=== PATIENT | female | born 1950 | race Caucasian/White ===

== ENCOUNTER → 2023-09-05 11:36 | Outpatient (REF) | payer MEDICARE, BC, SELFPAY ==
[2023-09-05 13:17] LABS: Albumin 3.8 g/dl (3.5-5.0); Blood Urea Nitrogen 35 mg/dl (7-17); Calcium 9.9 mg/dl (8.4-10.2); Carbon Dioxide 25 mmol/L (22-30); Chloride 105 mmol/L (98-107); Glucose 74 mg/dl (70-99); Phosphorus 3.8 mg/dl (2.5-4.5); Potassium 3.4 mmol/L (3.5-5.1); Sodium 135 mmol/L (135-145); eGFR 18.78
[2023-09-05 13:23] LABS: Intact PTH 221.2 pg/ml (13.6-85.8)
[2023-09-05 16:54] LABS: Uric Acid 9.6 mg/dl (2.5-6.2)
== END ==
LOC: REG 11:36
PROVIDERS: ATTENDING PHYSICIAN Specialist; FAMILY PHYSICIAN Family Medicine
DX: N18.4 Chronic kidney disease, stage 4 (severe) (principal); I27.0 Primary pulmonary hypertension; D63.1 Anemia in chronic kidney disease
CPT/HCPCS: 36415; 80069; 83970; 84550

== ENCOUNTER 2023-10-16 14:12 | Emergency (ER) | payer MEDICARE, BC, SELFPAY ==
[2023-10-16] VITALS (8 sets, daily range): BP systolic 100–138; BP diastolic 66–99
[2023-10-16 14:43] LABS: % Basophils 0.4 % (0-2); % Eosinophils 2.8 % (0-6); % Immature Granulocytes 0.7 % (0-0.5); % Lymphocytes 20.4 % (20.5-51.1); % Monocytes 11.2 % (1.7-9.3); % Neutrophils 64.5 % (42.2-75.2); Absolute Eosinophils 0.2 10^3/uL (0-0.7); Absolute Immature Granulocytes 0.1 10^3/uL (0-0.05); Absolute Lymphocytes 1.5 10^3/uL (1.2-3.4); Absolute Monocytes 0.8 10^3/uL (0.1-0.6); Absolute Neutrophils 4.7 10^3/uL (1.4-6.5); Hematocrit 34.1 % (37.0-47.0); Mean Corp Hgb Conc. 32.3 g/dL (33.0-37.0); Mean Corpuscular Volume 96.1 fL (81.0-99.0); Nucleated Red Blood Cells % 0 %; Platelet Count 185 10^3/uL (130-400); Red Blood Cell Count 3.55 10^6/uL (4.20-5.40); Red Cell Dist. Width 14.1 % (11.5-14.5); White Blood Cell Count 7.3 10^3/uL (4.8-10.8)
[2023-10-16 14:48] LABS: ALT (SGPT) 21 U/L (0-35); AST (SGOT) 33 U/L (14-36); Albumin 3.5 g/dl (3.5-5.0); Alkaline Phosphatase 51 U/L (38-126); Blood Urea Nitrogen 33 mg/dl (7-17); Calcium 9.5 mg/dl (8.4-10.2); Carbon Dioxide 24 mmol/L (22-30); Chloride 104 mmol/L (98-107); Glucose 113 mg/dl (70-99); Lipase 203 U/L (23-300); Potassium 3.5 mmol/L (3.5-5.1); Sodium 132 mmol/L (135-145); Total Bilirubin 0.6 mg/dl (0.2-1.3); Total Protein 6.2 g/dl (6.3-8.2); eGFR 17.18
--- NOTE | 2023-10-16 16:20 | ED.GENMED ---
History of Present Illness
General
Chief Complaint: Abdominal Pain
Source: patient and records
Time Seen by Provider: 10/16/23 16:01
Travel History
Have you had any contact with someone who has COVID-19?: No
Do you have any symptoms of coronavirus? Fever > 100 degrees, chills, cough, shortness of breath, sore throat, loss of taste or smell, muscle aches, or headache?: No
History of Present Illness
History of Present Illness:
73-year-old female with past medical history of hypertension, hyperlipidemia, previous atrial fibrillation, pulmonary embolism and chronic kidney disease presenting to the emergency department for evaluation of right upper quadrant abdominal pain
that has been waxing and waning since Monday, Monday had a fever with Tmax of 100.6 and reports low-grade fever since then (99 4-99 5 but nothing higher than this) persistent nausea and decreased p.o. intake. Patient states that this feels
similar to when she was diagnosed with cholangitis and septicemia about 3 months ago where she underwent an MRCP and ERCP for stone retrieval. Patient contacted her GI team, Dr. Llanes, and the office staff recommended patient come to the ER for
further evaluation. Patient states that she did not take anything today but had attempted some Zofran, Bentyl and hydrocodone at home since Monday but with no relief. Presently patient states pain is still within the right upper quadrant and
radiates towards the epigastrium,, aching, worse with palpation and movement.
Past History
Past History
ED Past Medical History: CAD, HTN, Hypercholesterolemia, Hypothyroidism, Other (Pancreatitis, irritable bowel), Other (Lyme's disease 3 years ago, pulmonary hypertension) and Other (Syncopal episodes, rheumatoid arthritis, osteoporosis, and ovarian
cysts)
ED Past Surgical History: Cardiac, Cholecystectomy, Gynecological and Orthopedic
Social History
Tobacco: Non-smoker
Alcohol: None
Drug: None
Personal:
Living: with family
Family History
Family History: Other (Not relevant)
Review of Systems
Review of Systems
All Other Systems: ROS reviewed and negative except as documented in HPI and ROS
Phy Exam
Physical Exam
Physical Exam:
GENERAL: Alert , in no apparent distress at rest but uncomfortable with palpation of the abdomen
EYE: clear conjunctiva b/l
HEAD: NCAT
ENT: o/p clr, mmm.
CARDIAC: Regular rate and rhythm .
LUNGS: Clear breath sounds bilaterally, no acute respiratory distress, no wheezes/rales/rhonchi
ABDOMEN: Soft, right upper quadrant tenderness with grimacing but a negative Noguera sign, no r/g, no cvat, no tenderness at McBurney's point
NEUROLOGICAL: Alert and oriented
SKIN: Warm and dry, skin intact.
MUSCULOSKELETAL: No edema, well perfused.
PSYCH: Normal and appropriate interaction.
Scores
Heart Failure Risk
Heart Failure Risk Score: Not Applicable
Heart Score for Chest Pain Patients
STEMI patient?: Not applicable
Withdrawal Assessment of Alcohol
Withdrawal Assessment Completed?: Not applicable
Course
Orders/Labs/Results
Orders:
Orders
10/16/23 14:21
Complete Blood Count/With Diff Urgent
Comprehensive Metabolic Panel Urgent
Lipase Urgent
10/16/23 16:18
CT Abd/pel (oral only)-[facility] Only Urgent
Comment:
Reason For Exam: RUQ abd pain, hx of cholangitis, fever
Iohexol [Omnipaque] See Protocol PO NOW STA
US Abdomen Complete/Upper Urgent
Comment:
Reason For Exam: fever, hx cholangitis, RUQ pain, previous ezequiel
10/16/23 16:19
0.9% Sodium Chloride 500 ml [Nss] 500 ml IV BOLUS
Morphine Sulfate 4 mg IV NOW STA
Ondansetron Injectable [Zofran] 4 mg IV NOW STA
10/16/23 21:20
Morphine Sulfate 2 mg IV NOW STA
Abnormal Lab Results
10/16/23
14:21
RBC 3.55 L 10^6/uL
(4.20-5.40)
Hgb 11.0 L g/dL
(12.0-16.0)
Hct 34.1 L %
(37.0-47.0)
MCHC 32.3 L g/dL
(33.0-37.0)
Abs Immat Gran (auto) 0.1 H 10^3/uL
(0-0.05)
Absolute Monos (auto) 0.8 H 10^3/uL
(0.1-0.6)
Immature Gran % 0.7 H %
(0-0.5)
Lymphocytes % 20.4 L %
(20.5-51.1)
Monocytes % 11.2 H %
(1.7-9.3)
Sodium 132 L mmol/L
(135-145)
BUN 33 H mg/dl
(7-17)
Creatinine 2.8 H mg/dL
(0.6-1.0)
Glucose 113 H mg/dl
(70-99)
Total Protein 6.2 L g/dl
(6.3-8.2)
10/16/23 14:21
10/16/23 14:21
Vital Signs
Initial and Last Documented VS:
Initial Vital Signs
Temp Pulse Resp BP Pulse Ox
98.9 F 78 18 138/66 93
10/16/23 14:15 10/16/23 14:15 10/16/23 14:15 10/16/23 14:15 10/16/23 14:15
Last Documented Vital Signs
Temp Pulse Resp BP Pulse Ox
98.9 F 76 17 118/70 94
10/16/23 14:15 10/16/23 21:00 10/16/23 21:00 10/16/23 21:00 10/16/23 20:45
MDM/Problems Addressed
Differential Diagnosis Includes:
Recurring choledocholithiasis, no concern for cholecystitis Previous cholecystectomy, GERD/gastritis/duodenitis, possible atypical appendicitis presentation, infectious etiology such as pneumonia considered given the upper abdominal pain however
less likely given lack of symptoms of this.
MDM/Problems Addressed:
73-year-old female present emergency department for evaluation of right upper quadrant abdominal pain since Monday, had a fever on Monday but no fever since. Pain is pretty clearly reproducible within the right upper quadrant as well as mildly
within the epigastrium. Lab work had been initiated from triage and there is no leukocytosis, LFTs are normal and patient has known chronic kidney disease. Will check an ultrasound as well as CT of the abdomen and pelvis. Reassessment following.
*Radiology
Radiology exam reviewed: radiology read reviewed
*Pulse Oximetry
Patient hypoxic: no
*Critical Care Note
Total Time (30-74mins, 75-104mins- exclusive of procedures): Not Applicable
Data Reviewed
Review of Other/Old Records Reveals: Labs, Records, Operative Reports and Discharge Summary
Source: patient and records
Patient Management
Escalation/DeEscalation of care consider admission/obs:
Patient's ultrasound shows moderate intrahepatic biliary dilatation with suggestion of diffuse pneumobilia. Common bile duct is 5-1/2 mm without any evidence for stones. CT of the abdomen pelvis states the pneumobilia is unchanged from February
2022. There are also incidental findings of moderate wall thickening of the gastric fundus suspicious for acute gastritis. Mild wall thickening throughout multiple segments of the colon suspicious for acute pancolitis, severe diverticulosis and
other chronic findings. Overall I do feel patient's diagnosis of gastritis makes sense given her epigastric abdominal pain. Symptoms could also be related to the pancolitis. With shared decision making we decided to provide the patient with a
prescription for Cipro and Flagyl but this is to not be taken unless symptoms are to worsen or she is to be develop any fevers greater than 100.4. Prescription for Pepcid also provided. Patient will follow-up with her primary care provider and
will recontact her GI team to help follow-up as well. She is aware of return precautions to the emergency department but otherwise stable for discharge home presently.
ED Attending Note
-
Portions of this chart may have been created with voice recognition software.� Occasional wrong word or��sound alike� substitutions may have occurred due to the inherent limitations of voice recognition software.
Discharge Plan
Departure
Patient Disposition: Home (Routine Discharge)
Date of Disposition: 10/16/23
Time of Disposition: 21:12
Patient with high blood pressure during this ER visit?: No
Discharge Problem:
Abdominal pain, Diverticulosis, Gastritis
Instructions: Abdominal Pain
Prescriptions:
New
famotidine [Pepcid] 20 mg tablet
20 mg PO DAILY Qty: 30 0RF
ciprofloxacin HCl [Cipro] 500 mg tablet
500 mg PO BID 7 Days Qty: 14 0RF
metronidazole 500 mg tablet
500 mg PO BID 7 Days Qty: 14 0RF
No Action
Opsumit 10 MG tablet
10 mg PO DAILY
venlafaxine [Effexor XR] 150 MG capsule,extended release 24hr
150 mg PO DAILY
atorvastatin 80 MG tablet
80 mg PO QPM
metoprolol tartrate 25 MG tablet
25 mg PO BID
isosorbide mononitrate 30 MG tablet extended release 24 hr
30 mg PO DAILY
nitroglycerin 0.4 MG tablet, sublingual
0.4 mg sublingual [id number] PRN (Reason: chest pain)
amlodipine [Norvasc] 2.5 mg Tablet
2.5 mg PO BID Qty: 180 5RF
clonazepam 1 mg tablet
0.5 mg PO HS PRN (Reason: sleep)
Patient Comments:
07/07/2023, patient filled this medication on 05/18/2023 for 90 tablets according to PDMP.
aspirin 81 mg Tablet,Delayed Release (Dr/Ec)
81 mg PO QPM
furosemide [Lasix] 20 mg tablet
20 mg PO MOWEFR Qty: 30 1RF
Eliquis 5 MG tablet
5 mg PO BID
ondansetron HCl 4 mg Tablet
4 mg PO Q8H PRN (Reason: nausea)
cetirizine 10 mg Tablet
10 mg PO DAILY
polyethylene glycol 3350 [Miralax] 17 gram Powder In Packet
17 g PO .SEE BELOW
Patient Comments:
07/07/2023, patient states that she takes this medication either in the morning or at night every day.
prednisone 5 mg Tablet
10 mg PO DAILY
acetaminophen [Tylenol Extra Strength] 500 mg Tablet
500 mg PO Q6H PRN (Reason: mild pain)
calcium carbonate 500 mg calcium (1,250 mg) Tablet,Chewable
1,000 mg PO Q4HPRN PRN (Reason: gerd)
hydroxychloroquine 200 mg Tablet
400 mg PO DAILY
dicyclomine 10 mg Capsule
10 mg PO QID PRN (Reason: abdominal pain)
levothyroxine 112 mcg Tablet
112 mcg PO DAILY AT 0700
cholecalciferol (vitamin D3) 25 mcg (1,000 unit) Tablet
25 mcg PO DAILY
betamethasone valerate 0.1 % Ointment
1 applic TOPICAL TID PRN (Reason: apply to vulva)
leflunomide [Arava] 20 MG tablet
20 mg PO DAILY Qty: 0 0RF
Rx Instructions:
resume after you complete course of antibiotics
pantoprazole [Protonix] 40 mg tablet,delayed release (DR/EC)
40 mg PO DAILY Qty: 30 0RF
cefdinir 300 mg capsule
300 mg PO BID Qty: 8 0RF
metronidazole 500 mg tablet
500 mg PO TID Qty: 14 0RF
Referrals:
Shayna Nielsen MD [Family Provider] -
Mckenna Llanes DO [Active] -
Interventions
Interventions:
*Risk Screen - Suicide Last Done: 10/16/23 14:19
*General Assessment Last Done: 10/16/23 14:19
*Neglect/Abuse Screening Last Done: 10/16/23 14:19
*Nursing Disposition Last Done: 10/16/23 21:57
NK-Nrvvor-Iluamvozix Assessment Last Done: 10/16/23 16:15
Discharge Date and Time
Discharge Date/Time: 10/16/23 21:57
[2023-10-16] MEDS: OMNIPAQUE 50 ML PO (16:27)
[2023-10-16] MEDS: ZOFRAN 4 MG IV (16:28)
[2023-10-16] MEDS: MORPHINE SULFATE 4 MG IV (16:28)
[2023-10-16] MEDS: NSS 500 IV (16:28)
[2023-10-16] MEDS: MORPHINE SULFATE 2 MG IV (21:22)
== END 2023-10-16 21:57 | disposition home or self-care (01) ==
LOC: EMR 14:12
PROVIDERS: Emergency Medicine; EMERGENCY PHYSICIAN Emergency Medicine; FAMILY PHYSICIAN Family Medicine
DX: R10.9 Unspecified abdominal pain (principal); K57.30 Diverticulosis of large intestine without perforation or abscess without bleeding; K29.70 Gastritis, unspecified, without bleeding
CPT/HCPCS: 99285; 96374; 96375; 96361; 96376; 74176; 76700; 80053; 83690; 85025

== ENCOUNTER → 2023-10-19 12:36 | Outpatient (REF) | payer MEDICARE, BC, SELFPAY ==
[2023-10-19 14:27] LABS: % Basophils 0.5 % (0-2); % Eosinophils 4.4 % (0-6); % Immature Granulocytes 0.5 % (0-0.5); % Lymphocytes 22.1 % (20.5-51.1); % Monocytes 9.5 % (1.7-9.3); Absolute Eosinophils 0.3 10^3/uL (0-0.7); Absolute Lymphocytes 1.3 10^3/uL (1.2-3.4); Absolute Monocytes 0.6 10^3/uL (0.1-0.6); Absolute Neutrophils 3.7 10^3/uL (1.4-6.5); Hematocrit 32.9 % (37.0-47.0); Hemoglobin 10.6 g/dL (12.0-16.0); Mean Corp Hgb Conc. 32.2 g/dL (33.0-37.0); Mean Corpuscular Volume 96.2 fL (81.0-99.0); Mean Platelet Volume 10.2 fL (7.4-10.4); Nucleated Red Blood Cells % 0 %; Platelet Count 207 10^3/uL (130-400); Red Blood Cell Count 3.42 10^6/uL (4.20-5.40); Red Cell Dist. Width 13.9 % (11.5-14.5); White Blood Cell Count 5.9 10^3/uL (4.8-10.8)
[2023-10-19 14:30] LABS: Urine Albumin 1+ (Neg - Trace); Urine Bilirubin 1+ (Negative); Urine Character Clear (Clear); Urine Color Yellow; Urine Glucose Negative (Negative); Urine Ketone Trace (Negative); Urine Leukocyte Trace (Negative); Urine Nitrite Negative (Negative); Urine Occult Blood Negative (Negative); Urine Specific Gravity 1.015 (<1.030); Urine Urobilinogen Negative (Neg - 1+)
[2023-10-19 14:41] LABS: Urine Red Blood Cell 0-2 /HPF (0-2); Urine Squamous Cell >30 /LPF (Few)
[2023-10-19 14:42] LABS: Urine Bacteria Few (Negative)
[2023-10-19 14:48] LABS: Calcium 10.2 mg/dl (8.4-10.2)
[2023-10-19 14:51] LABS: ALT (SGPT) 20 U/L (0-35); AST (SGOT) 32 U/L (14-36); Albumin 3.8 g/dl (3.5-5.0); Alkaline Phosphatase 62 U/L (38-126); Blood Urea Nitrogen 32 mg/dl (7-17); Calcium 9.8 mg/dl (8.4-10.2); Carbon Dioxide 24 mmol/L (22-30); Chloride 106 mmol/L (98-107); Glucose 78 mg/dl (70-99); Phosphorus 4.1 mg/dl (2.5-4.5); Potassium 3.6 mmol/L (3.5-5.1); Sodium 136 mmol/L (135-145); Total Bilirubin 0.5 mg/dl (0.2-1.3); Total Protein 6.4 g/dl (6.3-8.2); eGFR 15.82
[2023-10-19 15:01] LABS: Complement C3 113 mg/dl (88-165)
[2023-10-21 09:50] LABS: Intact PTH 99.4 pg/ml (13.6-85.8)
[2023-10-22 04:57] LABS: ds-DNA Ab, IgG Reflex To Titer 92 IU (0-24)
== END ==
LOC: REG 12:36
PROVIDERS: ATTENDING PHYSICIAN Internal Medicine Rheumatology; FAMILY PHYSICIAN Family Medicine; REFERRING PHYSICIAN Specialist
DX: M32.8 Other forms of systemic lupus erythematosus (principal); N18.4 Chronic kidney disease, stage 4 (severe); I27.0 Primary pulmonary hypertension; D63.1 Anemia in chronic kidney disease
CPT/HCPCS: 36415; 80053; 80069; 81003; 81015; 83970; 85025; 86160; 86225; 86256

== ENCOUNTER → 2023-11-15 13:31 | Outpatient (REF) | payer MEDICARE, BC, SELFPAY ==
[2023-11-15 15:18] LABS: Blood Urea Nitrogen 38 mg/dl (7-17); Calcium 10.8 mg/dl (8.4-10.2); Carbon Dioxide 23 mmol/L (22-30); Chloride 102 mmol/L (98-107); Glucose 105 mg/dl (70-99); Potassium 3.3 mmol/L (3.5-5.1); Sodium 138 mmol/L (135-145); eGFR 15.82
== END ==
LOC: REG 13:31
PROVIDERS: ATTENDING PHYSICIAN Specialist; FAMILY PHYSICIAN Family Medicine
DX: I27.0 Primary pulmonary hypertension (principal); N28.9 Disorder of kidney and ureter, unspecified; E78.5 Hyperlipidemia, unspecified; D63.1 Anemia in chronic kidney disease
CPT/HCPCS: 36415; 80048

== ENCOUNTER → 2023-12-13 12:42 | Outpatient (REF) | payer MEDICARE, BC, SELFPAY ==
[2023-12-13 14:06] LABS: Urine Albumin 1+ (Neg - Trace); Urine Bilirubin Negative (Negative); Urine Character Clear (Clear); Urine Color Yellow; Urine Glucose Negative (Negative); Urine Ketone Negative (Negative); Urine Leukocyte Negative (Negative); Urine Nitrite Negative (Negative); Urine Occult Blood Negative (Negative); Urine Urobilinogen Negative (Neg - 1+)
[2023-12-13 14:27] LABS: Albumin 3.8 g/dl (3.5-5.0); Blood Urea Nitrogen 34 mg/dl (7-17); Calcium 9.8 mg/dl (8.4-10.2); Carbon Dioxide 21 mmol/L (22-30); Chloride 108 mmol/L (98-107); Glucose 83 mg/dl (70-99); Sodium 139 mmol/L (135-145); eGFR 25.73
[2023-12-13 14:39] LABS: Urine Red Blood Cell 0-2 /HPF (0-2); Urine Squamous Cell 16-20 /LPF (Few); Urine White Cell 0-2 /HPF (0-5)
[2023-12-13 14:45] LABS: Protein/creatinine Ratio 0.4; Urine Protein 77 mg/dl
[2023-12-13 15:05] LABS: Ionized Calcium 1.24 mMOL/L (1.15-1.33)
== END ==
LOC: REG 12:42
PROVIDERS: ATTENDING PHYSICIAN Specialist; FAMILY PHYSICIAN Family Medicine
DX: E83.52 Hypercalcemia (principal); M32.9 Systemic lupus erythematosus, unspecified; N18.4 Chronic kidney disease, stage 4 (severe)
CPT/HCPCS: 36415; 80069; 81003; 81015; 82330; 82570; 83970; 84156; 85014; 85018

== ENCOUNTER → 2024-01-10 12:31 | Outpatient (REF) | payer MEDICARE, BC, SELFPAY ==
[2024-01-10 15:18] LABS: Hematocrit 31.1 % (37.0-47.0); Hemoglobin 10.4 g/dL (12.0-16.0)
[2024-01-10 15:56] LABS: Blood Urea Nitrogen 28 mg/dl (7-17); Calcium 10.4 mg/dl (8.4-10.2); Carbon Dioxide 22 mmol/L (22-30); Chloride 108 mmol/L (98-107); Glucose 101 mg/dl (70-99); Potassium 3.7 mmol/L (3.5-5.1); Sodium 141 mmol/L (135-145); eGFR 17.95
[2024-01-11 14:41] LABS: Intact PTH 82.9 pg/ml (13.6-85.8)
[2024-01-12 23:49] LABS: Vitamin D 1,25 Dihydroxy 10.2 pg/mL (19.9-79.3)
== END ==
LOC: REG 12:31
PROVIDERS: ATTENDING PHYSICIAN Specialist; FAMILY PHYSICIAN Family Medicine
DX: N18.4 Chronic kidney disease, stage 4 (severe) (principal); E34.9 Endocrine disorder, unspecified; D63.1 Anemia in chronic kidney disease; E78.5 Hyperlipidemia, unspecified; N28.9 Disorder of kidney and ureter, unspecified
CPT/HCPCS: 36415; 80069; 82652; 83970; 85014; 85018

== ENCOUNTER → 2024-01-31 14:20 | Outpatient (REF) | payer MEDICARE, BC, SELFPAY ==
[2024-01-31 15:02] LABS: Hematocrit 33.7 % (37.0-47.0)
[2024-01-31 15:23] LABS: NT-proBNP 4460 pg/ml
[2024-01-31 15:42] LABS: Albumin 4.2 g/dl (3.5-5.0); Blood Urea Nitrogen 24 mg/dl (7-17); Calcium 10.4 mg/dl (8.4-10.2); Carbon Dioxide 19 mmol/L (22-30); Chloride 109 mmol/L (98-107); Glucose 89 mg/dl (70-99); Phosphorus 4.5 mg/dl (2.5-4.5); Potassium 4.2 mmol/L (3.5-5.1); Sodium 139 mmol/L (135-145); eGFR 22.95
== END ==
LOC: REG 14:20
PROVIDERS: ATTENDING PHYSICIAN Specialist; FAMILY PHYSICIAN Family Medicine; REFERRING PHYSICIAN Internal Medicine Cardiovascular Disease
DX: N18.4 Chronic kidney disease, stage 4 (severe) (principal); E78.5 Hyperlipidemia, unspecified; D63.1 Anemia in chronic kidney disease; N28.9 Disorder of kidney and ureter, unspecified
CPT/HCPCS: 36415; 80069; 83880; 83970; 85014; 85018

== ENCOUNTER → 2024-03-06 08:09 | Outpatient (REF) | payer MEDICARE, BC, SELFPAY ==
[2024-03-06 08:56] LABS: Ionized Calcium 1.25 mMOL/L (1.15-1.33)
[2024-03-06 10:08] LABS: Intact PTH 185.2 pg/ml (13.6-85.8)
[2024-03-06 11:07] LABS: ALT (SGPT) 17 U/L (0-35); AST (SGOT) 29 U/L (14-36); Albumin 4.3 g/dl (3.5-5.0); Alkaline Phosphatase 50 U/L (38-126); Blood Urea Nitrogen 26 mg/dl (7-17); Calcium 10.6 mg/dl (8.4-10.2); Carbon Dioxide 25 mmol/L (22-30); Chloride 110 mmol/L (98-107); Glucose 78 mg/dl (70-99); Potassium 4.2 mmol/L (3.5-5.1); Sodium 141 mmol/L (135-145); Total Bilirubin 0.5 mg/dl (0.2-1.3); Total Protein 6.8 g/dl (6.3-8.2); eGFR 22.95
[2024-03-06 11:21] LABS: Free T4 0.61 ng/dl (0.78-2.19); Vitamin D, 25-OH*** 34.3 ng/mL (30-80)
== END ==
LOC: REG 08:09
PROVIDERS: ATTENDING PHYSICIAN Internal Medicine Endocrinology, Diabetes & Metabolism; FAMILY PHYSICIAN Family Medicine
DX: E06.3 Autoimmune thyroiditis (principal); E83.52 Hypercalcemia; E55.9 Vitamin D deficiency, unspecified; E34.9 Endocrine disorder, unspecified; R53.82 Chronic fatigue, unspecified
CPT/HCPCS: 36415; 80053; 82306; 82330; 83970; 84439; 84443

== ENCOUNTER → 2024-04-08 08:35 | Outpatient (REF) | payer MEDICARE, BC, SELFPAY | LOC: RAD 08:35 | PROVIDERS: ATTENDING PHYSICIAN Internal Medicine Endocrinology, Diabetes & Metabolism; FAMILY PHYSICIAN Family Medicine | DX: E21.0 Primary hyperparathyroidism (principal); E83.52 Hypercalcemia | CPT/HCPCS: 78071; A9500 ==

== ENCOUNTER → 2024-04-22 11:31 | Outpatient (REF) | payer MEDICARE, BC, SELFPAY ==
[2024-04-22 12:31] LABS: Ionized Calcium 1.21 mMOL/L (1.15-1.33)
[2024-04-22 12:34] LABS: Urine Albumin Trace (Neg - Trace); Urine Bilirubin Negative (Negative); Urine Character Clear (Clear); Urine Color Yellow; Urine Glucose Negative (Negative); Urine Ketone Negative (Negative); Urine Leukocyte Negative (Negative); Urine Nitrite Negative (Negative); Urine Occult Blood Negative (Negative); Urine Specific Gravity 1.015 (<1.030); Urine Urobilinogen Negative (Neg - 1+)
[2024-04-22 12:36] LABS: % Basophils 0.8 % (0-2); % Eosinophils 4.8 % (0-6); % Immature Granulocytes 0.3 % (0-0.5); % Lymphocytes 20.6 % (20.5-51.1); % Monocytes 13.1 % (1.7-9.3); % Neutrophils 60.4 % (42.2-75.2); Absolute Basophils 0.1 10^3/uL (0-0.2); Absolute Eosinophils 0.3 10^3/uL (0-0.7); Absolute Lymphocytes 1.3 10^3/uL (1.2-3.4); Absolute Monocytes 0.9 10^3/uL (0.1-0.6); Absolute Neutrophils 3.9 10^3/uL (1.4-6.5); Hemoglobin 10.9 g/dL (12.0-16.0); Mean Corpuscular Volume 93.8 fL (81.0-99.0); Mean Platelet Volume 9.7 fL (7.4-10.4); Nucleated Red Blood Cells % 0 %; Platelet Count 229 10^3/uL (130-400); Red Blood Cell Count 3.52 10^6/uL (4.20-5.40); Red Cell Dist. Width 14.5 % (11.5-14.5); White Blood Cell Count 6.5 10^3/uL (4.8-10.8)
[2024-04-22 13:08] LABS: ALT (SGPT) 19 U/L (0-35); AST (SGOT) 28 U/L (14-36); Albumin 4.3 g/dl (3.5-5.0); Alkaline Phosphatase 57 U/L (38-126); Blood Urea Nitrogen 26 mg/dl (7-17); Calcium 10.1 mg/dl (8.4-10.2); Carbon Dioxide 22 mmol/L (22-30); Chloride 105 mmol/L (98-107); Glucose 72 mg/dl (70-99); Phosphorus 4.3 mg/dl (2.5-4.5); Potassium 4.1 mmol/L (3.5-5.1); Sodium 141 mmol/L (135-145); Total Bilirubin 0.6 mg/dl (0.2-1.3); Total Protein 6.9 g/dl (6.3-8.2); eGFR 20.68
[2024-04-22 13:17] LABS: Free T4 1.74 ng/dl (0.78-2.19)
[2024-04-22 13:19] LABS: Erythrocyte Sed Rate 30 mm/hour (0-20)
[2024-04-22 13:58] LABS: Uric Acid 8.1 mg/dl (2.5-6.2)
[2024-04-22 14:32] LABS: Protein/creatinine Ratio 0.3; Urine Protein 27 mg/dl
[2024-04-22 16:24] LABS: Complement C3 114 mg/dl (88-165)
[2024-04-24 14:13] LABS: Intact PTH 314.6 pg/ml (13.6-85.8)
[2024-04-25 01:45] LABS: Vitamin D 1,25 Dihydroxy 13.1 pg/mL (19.9-79.3)
== END ==
LOC: REG 11:31
PROVIDERS: ATTENDING PHYSICIAN Internal Medicine Rheumatology; FAMILY PHYSICIAN Family Medicine; OTHER PHYSICIAN Internal Medicine Endocrinology, Diabetes & Metabolism; REFERRING PHYSICIAN Specialist
DX: E06.3 Autoimmune thyroiditis (principal); E34.9 Endocrine disorder, unspecified; N18.4 Chronic kidney disease, stage 4 (severe); M32.8 Other forms of systemic lupus erythematosus
CPT/HCPCS: 36415; 80053; 81003; 82306; 82330; 82570; 82652; 83970; 84100; 84156; 84439; 84443; 84550; 85025; 85652; 86160; 86225

== ENCOUNTER → 2024-05-17 13:24 | Outpatient (REF) | payer MEDICARE, BC, SELFPAY | LOC: MRI 13:24 | PROVIDERS: ATTENDING PHYSICIAN Internal Medicine; FAMILY PHYSICIAN Family Medicine | DX: R93.89 Abnormal findings on diagnostic imaging of other specified body structures (principal); K80.50 Calculus of bile duct without cholangitis or cholecystitis without obstruction | CPT/HCPCS: 74181 ==

== ENCOUNTER → 2024-05-22 10:04 | Outpatient (REF) | payer MEDICARE, BC, SELFPAY ==
[2024-05-22 12:53] LABS: Intact PTH 250.4 pg/ml (13.6-85.8)
[2024-05-22 13:28] LABS: Blood Urea Nitrogen 26 mg/dl (7-17); Calcium 9.8 mg/dl (8.4-10.2); Carbon Dioxide 19 mmol/L (22-30); Chloride 109 mmol/L (98-107); Glucose 87 mg/dl (70-99); Phosphorus 3.9 mg/dl (2.5-4.5); Potassium 4.1 mmol/L (3.5-5.1); Sodium 141 mmol/L (135-145); eGFR 25.73
== END ==
LOC: RCS 10:04
PROVIDERS: ATTENDING PHYSICIAN Internal Medicine Cardiovascular Disease; FAMILY PHYSICIAN Family Medicine; REFERRING PHYSICIAN Specialist
DX: R06.02 Shortness of breath (principal); I27.20 Pulmonary hypertension, unspecified
CPT/HCPCS: 36415; 80069; 83970; 93306

== ENCOUNTER → 2024-05-29 13:37 | Outpatient (REF) | payer MEDICARE, BC, SELFPAY ==
[2024-05-29 15:45] LABS: % Eosinophils 4.9 % (0-6); % Immature Granulocytes 0.3 % (0-0.5); % Lymphocytes 17.3 % (20.5-51.1); % Monocytes 10.7 % (1.7-9.3); % Neutrophils 65.8 % (42.2-75.2); Absolute Basophils 0.1 10^3/uL (0-0.2); Absolute Eosinophils 0.3 10^3/uL (0-0.7); Absolute Lymphocytes 1.1 10^3/uL (1.2-3.4); Absolute Monocytes 0.7 10^3/uL (0.1-0.6); Hematocrit 28.2 % (37.0-47.0); Hemoglobin 9.3 g/dL (12.0-16.0); Mean Corpuscular Hgb 29.4 pg (27.0-31.0); Mean Corpuscular Volume 89.2 fL (81.0-99.0); Mean Platelet Volume 10.4 fL (7.4-10.4); Nucleated Red Blood Cells % 0 %; Platelet Count 218 10^3/uL (130-400); Red Blood Cell Count 3.16 10^6/uL (4.20-5.40); Red Cell Dist. Width 14.1 % (11.5-14.5); White Blood Cell Count 6.1 10^3/uL (4.8-10.8)
== END ==
LOC: REG 13:37
PROVIDERS: ATTENDING PHYSICIAN Internal Medicine Hematology & Oncology; FAMILY PHYSICIAN Family Medicine
DX: Z86.718 Personal history of other venous thrombosis and embolism (principal); D63.1 Anemia in chronic kidney disease; D53.9 Nutritional anemia, unspecified
CPT/HCPCS: 36415; 82784; 83521; 84155; 84165; 85025; 86334

== ENCOUNTER → 2024-06-03 06:39 | Day surgery (SDC) | payer MEDICARE, BC, SELFPAY | LOC: GI 06:39 | PROVIDERS: ATTENDING PHYSICIAN Internal Medicine | DX: Z12.11 Encounter for screening for malignant neoplasm of colon (principal); K63.89 Other specified diseases of intestine; K57.30 Diverticulosis of large intestine without perforation or abscess without bleeding; K62.89 Other specified diseases of anus and rectum; K64.9 Unspecified hemorrhoids; K22.70 Barrett's esophagus without dysplasia; K29.70 Gastritis, unspecified, without bleeding; K26.9 Duodenal ulcer, unspecified as acute or chronic, without hemorrhage or perforation; K31.A0 Gastric intestinal metaplasia, unspecified; K22.89 Other specified disease of esophagus; K44.9 Diaphragmatic hernia without obstruction or gangrene; R93.3 Abnormal findings on diagnostic imaging of other parts of digestive tract; R12 Heartburn | CPT/HCPCS: 45385; 45380; 43239; 88305; 88341; 88342 ==

== ENCOUNTER → 2024-06-12 11:49 | Outpatient (REF) | payer MEDICARE, BC, SELFPAY ==
[2024-06-12 12:31] LABS: Hematocrit 29.2 % (37.0-47.0); Hemoglobin 9.5 g/dL (12.0-16.0)
[2024-06-12 13:07] LABS: Albumin 4.1 g/dl (3.5-5.0); Blood Urea Nitrogen 29 mg/dl (7-17); Carbon Dioxide 22 mmol/L (22-30); Chloride 107 mmol/L (98-107); Glucose 102 mg/dl (70-99); Phosphorus 4.3 mg/dl (2.5-4.5); Potassium 4.3 mmol/L (3.5-5.1); Sodium 141 mmol/L (135-145); eGFR 22.95
[2024-06-12 13:15] LABS: Vitamin D, 25-OH*** 32.4 ng/mL (30-80)
[2024-06-12 15:29] LABS: Protein/creatinine Ratio 0.4; Urine Protein 22 mg/dl
[2024-06-12 15:33] LABS: Intact PTH 290.7 pg/ml (13.6-85.8)
== END ==
LOC: REG 11:49
PROVIDERS: ATTENDING PHYSICIAN Specialist; FAMILY PHYSICIAN Internal Medicine Cardiovascular Disease; REFERRING PHYSICIAN Family Medicine
DX: N28.9 Disorder of kidney and ureter, unspecified (principal); E78.5 Hyperlipidemia, unspecified; D63.1 Anemia in chronic kidney disease; I10 Essential (primary) hypertension; N18.4 Chronic kidney disease, stage 4 (severe); N17.9 Acute kidney failure, unspecified; E55.9 Vitamin D deficiency, unspecified
CPT/HCPCS: 36415; 80069; 82306; 82570; 83970; 84156; 85014; 85018

== ENCOUNTER → 2024-07-15 10:59 | Outpatient (REF) | payer MEDICARE, BC, SELFPAY ==
[2024-07-15 12:18] LABS: Blood Urea Nitrogen 23 mg/dl (7-17); Calcium 9.5 mg/dl (8.4-10.2); Carbon Dioxide 26 mmol/L (22-30); Chloride 105 mmol/L (98-107); Glucose 99 mg/dl (70-99); Phosphorus 4.4 mg/dl (2.5-4.5); Sodium 140 mmol/L (135-145); eGFR 24.12
[2024-07-17 10:12] LABS: Intact PTH 94.8 pg/ml (13.6-85.8)
== END ==
LOC: REG 10:59
PROVIDERS: ATTENDING PHYSICIAN Specialist; FAMILY PHYSICIAN Family Medicine
DX: N18.4 Chronic kidney disease, stage 4 (severe) (principal)
CPT/HCPCS: 36415; 80069; 83970

== ENCOUNTER → 2024-09-18 10:45 | Outpatient (REF) | payer MEDICARE, BC, SELFPAY ==
[2024-09-18 14:38] LABS: ALT (SGPT) 11 U/L (0-35); AST (SGOT) 20 U/L (14-36); Albumin 3.8 g/dl (3.5-5.0); Alkaline Phosphatase 75 U/L (38-126); Blood Urea Nitrogen 24 mg/dl (7-17); Calcium 9.2 mg/dl (8.4-10.2); Carbon Dioxide 24 mmol/L (22-30); Chloride 106 mmol/L (98-107); Glucose 83 mg/dl (70-99); Potassium 4.1 mmol/L (3.5-5.1); Sodium 140 mmol/L (135-145); Total Bilirubin 0.5 mg/dl (0.2-1.3); Total Protein 6.4 g/dl (6.3-8.2); eGFR 25.57
[2024-09-18 14:57] LABS: Erythrocyte Sed Rate 30 mm/hour (0-20); Vitamin D, 25-OH*** 37.2 ng/mL (30-80)
[2024-09-18 15:16] LABS: Urine Albumin 3+ (Neg - Trace); Urine Bilirubin Negative (Negative); Urine Character Clear (Clear); Urine Color Yellow; Urine Glucose Negative (Negative); Urine Ketone Negative (Negative); Urine Leukocyte Negative (Negative); Urine Nitrite Negative (Negative); Urine Occult Blood Negative (Negative); Urine Specific Gravity 1.015 (<1.030); Urine Urobilinogen Negative (Neg - 1+)
[2024-09-18 15:46] LABS: Folate 8.2 ng/ml (2.76-20); Vitamin B12 424 pg/ml (239-931)
[2024-09-18 16:53] LABS: Urine Bacteria Moderate (Negative); Urine Red Blood Cell 0-2 /HPF (0-2); Urine Squamous Cell >30 /LPF (Few); Urine White Cell 0-2 /HPF (0-5)
[2024-09-19 00:07] LABS: Complement C3 135 mg/dl (88-165)
[2024-09-21 02:34] LABS: ds-DNA Ab, IgG Reflex To Titer 92 IU (0-24)
[2024-09-21 03:02] LABS: ANA, IgG Reflex to HEp-2 Detected (None Detected)
== END ==
LOC: REG 10:45
PROVIDERS: ATTENDING PHYSICIAN Internal Medicine Rheumatology; FAMILY PHYSICIAN Family Medicine
DX: G61.1 Serum neuropathy (principal); M32.8 Other forms of systemic lupus erythematosus; M06.09 Rheumatoid arthritis without rheumatoid factor, multiple sites; D51.9 Vitamin B12 deficiency anemia, unspecified
CPT/HCPCS: 36415; 80053; 81003; 81015; 82306; 82607; 82746; 85652; 86038; 86140; 86160; 86225

== ENCOUNTER → 2024-11-12 09:45 | Outpatient (REF) | payer MEDICARE, BC, SELFPAY ==
[2024-11-12 10:26] LABS: Ionized Calcium 1.29 mMOL/L (1.15-1.33)
[2024-11-12 11:09] LABS: Urine Protein 44 mg/dl
[2024-11-12 11:11] LABS: Intact PTH 289.5 pg/ml (13.6-85.8)
[2024-11-12 11:15] LABS: Free T4 1.72 ng/dl (0.78-2.19); Vitamin D, 25-OH*** 25.1 ng/mL (30-80)
[2024-11-12 11:16] LABS: Microalbumin, Random Urine 16.5 mg/dl (0.6-1.7)
[2024-11-12 11:28] LABS: TSH 0.18 uIU/ml (0.47-4.68)
[2024-11-12 11:29] LABS: Microalbumin/creatinine Ratio 146.7 mg/g; Protein/creatinine Ratio 0.4
[2024-11-12 12:32] LABS: Albumin 4.6 g/dl (3.5-5.0); Blood Urea Nitrogen 25 mg/dl (7-17); Calcium 10.4 mg/dl (8.4-10.2); Carbon Dioxide 23 mmol/L (22-30); Chloride 108 mmol/L (98-107); Glucose 89 mg/dl (70-99); Phosphorus 3.7 mg/dl (2.5-4.5); Sodium 141 mmol/L (135-145); eGFR 22.81
== END ==
LOC: REG 09:45
PROVIDERS: ATTENDING PHYSICIAN Internal Medicine Endocrinology, Diabetes & Metabolism; FAMILY PHYSICIAN Specialist
DX: E06.3 Autoimmune thyroiditis (principal); E83.52 Hypercalcemia; E55.9 Vitamin D deficiency, unspecified; E34.9 Endocrine disorder, unspecified; R53.82 Chronic fatigue, unspecified; N18.4 Chronic kidney disease, stage 4 (severe)
CPT/HCPCS: 36415; 80069; 82043; 82306; 82330; 82570; 83970; 84156; 84439; 84443

== ENCOUNTER → 2024-11-22 13:37 | Outpatient (REF) | payer MEDICARE, BC, SELFPAY | LOC: MRI 13:37 | PROVIDERS: ATTENDING PHYSICIAN Student in an Organized Health Care Education/Training Program; FAMILY PHYSICIAN Family Medicine | DX: M25.562 Pain in left knee (principal) | CPT/HCPCS: 73721; 76014; 76015 ==

== ENCOUNTER → 2024-11-27 11:44 | Outpatient (REF) | payer MEDICARE, BC, SELFPAY ==
[2024-11-27 12:59] LABS: Albumin 3.7 g/dl (3.5-5.0); Blood Urea Nitrogen 23 mg/dl (7-17); Calcium 9.4 mg/dl (8.4-10.2); Carbon Dioxide 21 mmol/L (22-30); Chloride 110 mmol/L (98-107); Glucose 78 mg/dl (70-99); Phosphorus 4.2 mg/dl (2.5-4.5); Sodium 140 mmol/L (135-145)
[2024-11-27 14:16] LABS: Intact PTH 337.9 pg/ml (13.6-85.8)
== END ==
LOC: REG 11:44
PROVIDERS: ATTENDING PHYSICIAN Specialist; FAMILY PHYSICIAN Family Medicine
DX: N18.4 Chronic kidney disease, stage 4 (severe) (principal)
CPT/HCPCS: 36415; 80069; 83970

== ENCOUNTER → 2024-12-19 11:09 | Outpatient (REF) | payer MEDICARE, BC, SELFPAY | LOC: HWRCS 11:09 | PROVIDERS: ATTENDING PHYSICIAN Internal Medicine Cardiovascular Disease; FAMILY PHYSICIAN Specialist | DX: I50.32 Chronic diastolic (congestive) heart failure (principal); I48.91 Unspecified atrial fibrillation; I25.10 Atherosclerotic heart disease of native coronary artery without angina pectoris; E78.5 Hyperlipidemia, unspecified | CPT/HCPCS: 78452; 93017; A9500; J2785 ==

== ENCOUNTER → 2024-12-20 11:06 | Outpatient (REF) | payer MEDICARE, BC, SELFPAY | LOC: HWRCS 11:06 | PROVIDERS: ATTENDING PHYSICIAN Internal Medicine Cardiovascular Disease; FAMILY PHYSICIAN Specialist | DX: I50.32 Chronic diastolic (congestive) heart failure (principal); I48.91 Unspecified atrial fibrillation; I25.10 Atherosclerotic heart disease of native coronary artery without angina pectoris; E78.5 Hyperlipidemia, unspecified | CPT/HCPCS: 93306 ==

== ENCOUNTER → 2025-01-01 15:56 | Outpatient (REF) | payer MEDICARE, BC, SELFPAY ==
[2025-01-01 16:35] LABS: Urine Albumin 2+ (Neg - Trace); Urine Bilirubin Negative (Negative); Urine Character Clear (Clear); Urine Color Yellow; Urine Glucose 3+ (Negative); Urine Ketone Negative (Negative); Urine Leukocyte Negative (Negative); Urine Nitrite Negative (Negative); Urine Occult Blood Negative (Negative); Urine Specific Gravity 1.015 (<1.030); Urine Urobilinogen Negative (Neg - 1+)
[2025-01-01 16:48] LABS: Urine Squamous Cell >30 /LPF (Few)
[2025-01-01 16:49] LABS: Urine Bacteria Moderate (Negative); Urine Red Blood Cell 0-2 /HPF (0-2)
[2025-01-01 17:17] LABS: % Basophils 0.7 % (0-2); % Eosinophils 5.4 % (0-6); % Immature Granulocytes 0.4 % (0-0.5); % Lymphocytes 16.5 % (20.5-51.1); % Monocytes 9.4 % (1.7-9.3); % Neutrophils 67.6 % (42.2-75.2); Absolute Basophils 0.1 10^3/uL (0-0.2); Absolute Eosinophils 0.4 10^3/uL (0-0.7); Absolute Lymphocytes 1.1 10^3/uL (1.2-3.4); Absolute Monocytes 0.6 10^3/uL (0.1-0.6); Absolute Neutrophils 4.6 10^3/uL (1.4-6.5); Hematocrit 31.6 % (37.0-47.0); Hemoglobin 10.5 g/dL (12.0-16.0); Mean Corp Hgb Conc. 33.2 g/dL (33.0-37.0); Mean Corpuscular Hgb 30.9 pg (27.0-31.0); Mean Corpuscular Volume 92.9 fL (81.0-99.0); Mean Platelet Volume 10.5 fL (7.4-10.4); Nucleated Red Blood Cells % 0 %; Platelet Count 205 10^3/uL (130-400); Red Cell Dist. Width 14.6 % (11.5-14.5); White Blood Cell Count 6.8 10^3/uL (4.8-10.8)
[2025-01-01 17:38] LABS: ALT (SGPT) 13 U/L (0-35); AST (SGOT) 21 U/L (14-36); Albumin 4.1 g/dl (3.5-5.0); Alkaline Phosphatase 65 U/L (38-126); Blood Urea Nitrogen 24 mg/dl (7-17); Calcium 8.6 mg/dl (8.4-10.2); Carbon Dioxide 21 mmol/L (22-30); Chloride 114 mmol/L (98-107); Glucose 97 mg/dl (70-99); Phosphorus 4.3 mg/dl (2.5-4.5); Potassium 4.2 mmol/L (3.5-5.1); Sodium 143 mmol/L (135-145); Total Bilirubin 0.5 mg/dl (0.2-1.3); Total Protein 6.6 g/dl (6.3-8.2); eGFR 24.12
[2025-01-01 23:46] LABS: Complement C3 110 mg/dl (88-165)
[2025-01-04 03:27] LABS: ds-DNA Ab, IgG Reflex To Titer 72 IU (0-24)
[2025-01-04 07:45] LABS: ANA, IgG Reflex to HEp-2 Detected (None Detected)
== END ==
LOC: REG 15:56
PROVIDERS: ATTENDING PHYSICIAN Specialist; FAMILY PHYSICIAN Family Medicine; REFERRING PHYSICIAN Internal Medicine Rheumatology
DX: M32.8 Other forms of systemic lupus erythematosus (principal); N28.9 Disorder of kidney and ureter, unspecified; N18.4 Chronic kidney disease, stage 4 (severe); E78.5 Hyperlipidemia, unspecified; D63.1 Anemia in chronic kidney disease
CPT/HCPCS: 36415; 80053; 81003; 81015; 83970; 84100; 85025; 86038; 86160; 86225

== ENCOUNTER → 2025-01-21 09:31 | Outpatient (REF) | payer MEDICARE, BC, SELFPAY ==
[2025-01-23 15:31] LABS: Quantiferon Mitogen minus NIL 9.92 IU/mL; Quantiferon NIL 0.08 IU/mL; Quantiferon Plus TB1 minus NIL 0.02 IU/mL (<=0.34); Quantiferon Plus TB2 minus NIL 0.02 IU/mL (<=0.34); Quantiferon TB Gold Plus Negative (Negative)
== END ==
LOC: REG 09:31
PROVIDERS: ATTENDING PHYSICIAN Internal Medicine Rheumatology; FAMILY PHYSICIAN Family Medicine
DX: M32.8 Other forms of systemic lupus erythematosus (principal)
CPT/HCPCS: 36415; 86480

== ENCOUNTER 2025-03-05 07:09 | Inpatient (IN) | payer MEDICARE, BC, SELFPAY ==
--- NOTE | 2025-02-14 12:33 | CM ---
CM reviewed medical records. Patient confirmed demographics. Patient lives independently with who will provide support post operatively. Patient is active with her PCP and has medication coverage. Patient has all required DME from previous
surgery. Patient would prefer [facility] post operatively. CM will continue to follow.
PLAN: Home with [facility].
[2025-02-17 14:02] VITALS: BMI 28.6
[2025-02-17 14:14] LABS: Hematocrit 30.7 % (37.0-47.0); Hemoglobin 10.0 g/dL (12.0-16.0); Mean Corp Hgb Conc. 32.6 g/dL (33.0-37.0); Mean Corpuscular Volume 94.5 fL (81.0-99.0); Platelet Count 223 10^3/uL (130-400); Red Cell Dist. Width 13.7 % (11.5-14.5)
[2025-02-17 14:41] LABS: ALT (SGPT) 12 U/L (0-35); AST (SGOT) 20 U/L (14-36); Albumin 3.8 g/dl (3.5-5.0); Alkaline Phosphatase 60 U/L (38-126); Blood Urea Nitrogen 22 mg/dl (7-17); Calcium 9.4 mg/dl (8.4-10.2); Carbon Dioxide 20 mmol/L (22-30); Chloride 112 mmol/L (98-107); Estimated Creatinine Clearance 29 ml/min; Glucose 85 mg/dl (70-99); Potassium 3.9 mmol/L (3.5-5.1); Sodium 139 mmol/L (135-145); Total Protein 6.4 g/dl (6.3-8.2); eGFR 27.20
[2025-02-17 16:00] VITALS: BMI 28.6
[2025-02-18 09:35] LABS: Glycohemoglobin (HgbA1c) 5.1 % (4.0-5.6)
[2025-03-05] VITALS (18 sets, daily range): BP systolic 110–157; BP diastolic 50–111; BMI 28.6
[2025-03-05] MEDS: TYLENOL 650 MG PO ×4 (07:22→19:41)
[2025-03-05] MEDS: CELEBREX 200 MG PO (07:23)
[2025-03-05] MEDS: NORMOSOL-R/PLASMALYTE-A 1000 IV (07:37)
--- NOTE | 2025-03-05 07:59 | W.PN.UPDATE ---
Update Note
Progress Note Update
L knee OA s/p L TKA w/ Dr Harrison 03/05/25
- s/p L STEFANO, 2018, and R TKA, 2019, by Dr. Bao Harrison
DVT prophylaxis - Eliquis at modified dosing, b/l venous foot pumps
- Home Eliquis dosing to be resumed POD 3 if hemodynamically stable
Infection of L TH prosthesis, 2018, status post revision of L STEFANO with Dr. Bao Harrison and IV Rocephin x6 weeks
- Given elevated infection risk, would benefit from renally dosed Cefadroxil upon d/c
Hypertension with orthostatic hypotension - monitor BP/orthostatic VS
- + Parameters to home anti-hypertensives
- Gentle IVF running
- Midodrine TID ordered for SBP <125
CAD/NSTEMI, 2019, status post PCI with PIERO to LAD and PTCA to first diagonal branch - continue baby ASA
CHFpEF, ICM, Pulm HTN - gentle IVF to prevent fluid overload
- Resume Lasix but w/ SBP parameters to prevent post-surgical hypotension
- Low sodium diet
- Daily weights, I&Os
SSS, s/p DC PPM 08/2022
PAF, s/p ablation 2022
History of prolonged QT
- Monitor on tele
- Continue BB
- Eliquis as stated above
Exercise-induced asthma - monitor O2
- IS
- Decadron to assist w/ breathing
- Duonebs prn
Pulmonary embolism 1985
Left lower extremity DVT, 2015, status post left iliac stent thrombolysis and thrombectomy
Right upper extremity PICC line DVT 2017
May-Thurner syndrome
- Eliquis as stated above
- Will encourage early mobility as tolerated
- PLASMA FLOW DEVICES HIGHLY ENCOURAGED UPON D/C. Will have b/l venous foot pumps during inpatient stay
CKD stage 4 with transient hemodialysis in 2015 and 2016 - minimize nephrotoxins
- Assess renal function in AM
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
Gait disturbance and chronic dizziness, multifactorial - fall precautions
Chronic immunosuppression - Cefadroxil upon d/c
Multifactorial anemia with previous iron infusions - H&H in AM
- Consider IV iron
HLD
Mild valvular disease
Colon polyps
Diverticulosis
Irritable bowel syndrome
Hypothyroidism
Hyperparathyroidism
Lupus
Rheumatoid arthritis
Vitiligo
Gout
Osteoporosis
Depression
Anxiety
Sepsis secondary to cholangitis, 06/2023, status post ERCP with removal of common bile duct stone
Insomnia
[2025-03-05] MEDS: ZOFRAN 4 MG IV ×3 (09:59→21:57)
[2025-03-05] MEDS: DILAUDID 0.25 MG IV ×2 (10:06→10:22)
[2025-03-05] MEDS: PHENERGAN 50.25 MG IV (11:40)
[2025-03-05] MEDS: NSS 1000 IV (12:22)
[2025-03-05] MEDS: TYLENOL PO (12:33)
--- NOTE | 2025-03-05 13:51 | PTCARENOTE ---
Patient admitted from PACU post left total knee arthroplasty.The patient is alert and oriented.She rates her pain at a 2 out of 10.neurovascular assessment is within normal limits and ongoing.Vital signs are stable.The left dressing has a small
amount of drainage which is unchanged.The patient is in her bed with the call chadwick in reach.
[2025-03-05] MEDS: PROTONIX 40 MG PO (15:39)
[2025-03-05] MEDS: FARXIGA 10 MG PO (15:39)
[2025-03-05] MEDS: ZEMPLAR 1 MCG PO (15:40)
[2025-03-05] MEDS: LOPRESSOR PO (15:41)
[2025-03-05] MEDS: ZYLOPRIM 50 MG PO (15:42)
[2025-03-05] MEDS: EFFEXOR XR 150 MG PO (15:42)
[2025-03-05] MEDS: PLAQUENIL 200 MG PO (15:44)
[2025-03-05] MEDS: SYNTHROID 112 MCG PO (15:44)
[2025-03-05] MEDS: ZYRTEC 5 MG PO (15:44)
[2025-03-05] MEDS: DILAUDID 0.5 MG IV (16:46)
[2025-03-05] MEDS: NON-FORMULARY ITEM 10 MG PO (17:31)
[2025-03-05] MEDS: LOPRESSOR 25 MG PO (19:40)
[2025-03-05] MEDS: COLACE 100 MG PO (19:41)
[2025-03-05] MEDS: DECADRON 4 MG PO (19:41)
[2025-03-05] MEDS: ELIQUIS 2.5 MG PO (19:41)
[2025-03-05] MEDS: SENOKOT 17.2 MG PO (19:41)
[2025-03-05] MEDS: MAALOX 30 ML PO (19:42)
[2025-03-05] MEDS: BACTROBAN 2% OINTMENT 1 APPLIC NASAL (19:42)
[2025-03-05] MEDS: ANCEF 5 IV (21:52)
[2025-03-05] MEDS: NORVASC 2.5 MG PO (21:56)
[2025-03-05] MEDS: LIPITOR 80 MG PO (21:56)
[2025-03-05] MEDS: ASPIR LOW (ENTERIC COATED) 81 MG PO (21:56)
[2025-03-05] MEDS: KLONOPIN 1 MG PO (21:57)
[2025-03-06] VITALS: BP 145/84; BP 146/71; BP 171/87; PULSE 92
[2025-03-06] MEDS: TYLENOL PO (00:03)
[2025-03-06 03:00] VITALS: BP 132/51
[2025-03-06] MEDS: TYLENOL 650 MG PO ×3 (03:44→11:38)
[2025-03-06] MEDS: SYNTHROID 112 MCG PO (05:42)
[2025-03-06 05:52] VITALS: BMI 28.8
[2025-03-06 06:36] LABS: Hematocrit 24.9 % (37.0-47.0); Hemoglobin 8.2 g/dL (12.0-16.0)
[2025-03-06 07:00] VITALS: BP 140/73
[2025-03-06 07:30] LABS: Blood Urea Nitrogen 30 mg/dl (7-17); Calcium 8.5 mg/dl (8.4-10.2); Carbon Dioxide 16 mmol/L (22-30); Chloride 112 mmol/L (98-107); Estimated Creatinine Clearance 25 ml/min; Glucose 151 mg/dl (70-99); Potassium 4.3 mmol/L (3.5-5.1); Sodium 135 mmol/L (135-145); eGFR 22.81
[2025-03-06] MEDS: DILAUDID 2 MG PO (08:17)
[2025-03-06] MEDS: ZYRTEC 5 MG PO (08:17)
[2025-03-06] MEDS: PLAQUENIL 200 MG PO (08:18)
[2025-03-06] MEDS: PROTONIX 40 MG PO (08:18)
[2025-03-06] MEDS: LOPRESSOR 25 MG PO (08:18)
[2025-03-06] MEDS: ZYLOPRIM 50 MG PO (08:18)
[2025-03-06] MEDS: FARXIGA 10 MG PO (08:18)
[2025-03-06] MEDS: ELIQUIS 2.5 MG PO (08:20)
[2025-03-06] MEDS: SENOKOT 17.2 MG PO (08:20)
[2025-03-06] MEDS: EFFEXOR XR 150 MG PO (08:21)
[2025-03-06] MEDS: DECADRON 4 MG PO (08:21)
[2025-03-06] MEDS: COLACE 100 MG PO (08:21)
[2025-03-06] MEDS: BACTROBAN 2% OINTMENT 1 APPLIC NASAL (08:22)
[2025-03-06] MEDS: NON-FORMULARY ITEM 10 MG PO (08:22)
[2025-03-06] MEDS: ZOFRAN 4 MG IV (08:23)
[2025-03-06] MEDS: ANCEF 5 IV (08:23)
[2025-03-06] MEDS: MAALOX 30 ML PO (08:29)
--- NOTE | 2025-03-06 09:26 | CM ---
Cm met with patient in room. Patient confirmed choice of [facility]. CM updated [facility] medical science liaison.
PLAN: home with [facility].
[2025-03-06 09:29] VITALS: BP 144/71; PULSE 74; O2SAT 100
--- NOTE | 2025-03-06 09:30 | VNURNOTE ---
Home Health Liaison met with patient at bedside to discuss [facility] nurse/therapy, visits, schedule and homebound status. Patient is agreeable and understands that visits at home will be 2-3 x per week to assess and teach medical management. She had
[facility] in the past; is familiar with services. Patient is aware that [facility] will contact them for start of care in 1-2 days after discharge from .
PM [facility] referral completed in [facility].
[2025-03-06 09:58] VITALS: BP 135/65; PULSE 71; O2SAT 95
--- NOTE | 2025-03-06 10:21 | W.PN.ORTHO ---
Today's Communication / Plan
-
D/c today since clinically stable, did well w/ PT and OT.
Assessment
.
Distal Motor Intact: Yes
Dressing:
Small area of old incisional bleeding towards end of dressing. Dressing otherwise C/D/I.
Assessment:
L knee OA s/p L TKA w/ Dr Harrison 03/05/25
- s/p L STEFANO, 2018, and R TKA, 2019, by Dr. Bao Harrison
DVT prophylaxis - Eliquis at modified dosing, b/l venous foot pumps
- Home Eliquis dosing to be resumed POD 3 if hemodynamically stable
Infection of L TH prosthesis, 2017, status post revision of L STEFANO with Dr. Bao Harrison and IV Rocephin x6 weeks
- Given elevated infection risk, would benefit from renally dosed Cefadroxil upon d/c
Hypertension with orthostatic hypotension - VSS by POD 1
- + Parameters to home anti-hypertensives
- S/p gentle IVF
- Midodrine TID ordered for SBP <125; not needed thankfully
CAD/NSTEMI, 2019, status post PCI with PIERO to LAD and PTCA to first diagonal branch - continue baby ASA
CHFpEF, ICM, Pulm HTN - s/p gentle IVF to prevent fluid overload
- Resumed Lasix but w/ SBP parameters to prevent post-surgical hypotension. Continue while on Dilaudid upon d/c
- Low sodium diet
- Daily weights, I&Os stable
SSS, s/p DC PPM 08/2022
PAF, s/p ablation 2022
History of prolonged QT
- Rhythm stable on tele w/ continuation of home BB
- Eliquis as stated above
Exercise-induced asthma - O2 stable on RA by POD 1
- IS
- Decadron to assist w/ breathing
- Duonebs prn
Pulmonary embolism 1985
Left lower extremity DVT, 2015, status post left iliac stent thrombolysis and thrombectomy
Right upper extremity PICC line DVT 2018
May-Thurner syndrome
- Eliquis as stated above
- Will encourage early mobility as tolerated
- PLASMA FLOW DEVICES HIGHLY ENCOURAGED UPON D/C. Will have b/l venous foot pumps during inpatient stay
CKD stage 4 with transient hemodialysis in 2015 and 2017 - minimize nephrotoxins
- BUN/Cr stable prior to d/c
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
Gait disturbance and chronic dizziness, multifactorial - fall precautions
Chronic immunosuppression - Cefadroxil upon d/c
Multifactorial anemia with previous iron infusions - H&H 8.2 this AM
- Result likely higher given hemodilution from IVF overnight
- Asymptomatic, hemodynamically stable
- Prefer not to transfuse unless hgb </= 7, unstable
- Will have patient repeat outpatient
HLD
Mild valvular disease
Colon polyps
Diverticulosis
Irritable bowel syndrome
Hypothyroidism
Hyperparathyroidism
Lupus
Rheumatoid arthritis
Vitiligo
Gout
Osteoporosis
Depression
Anxiety
Sepsis secondary to cholangitis, 06/2023, status post ERCP with removal of common bile duct stone
Insomnia
Plan
.
Surgery / Date: L TKA w/ Dr Harrison 03/05/25
DVT Prophylaxis: Other (Eliquis )
Activity:
Out of bed.
PT/OT
Discharge Plan: Home w/ [facility]
Subjective
.
.:
Patient resting comfortably in bed.
L knee pain well controlled w/ current pain med regimen.
Denies any new significant complaints.
Eager for potential d/c today.
Vital Signs and Labs
.
Vital Signs and Labs:
Lab Results
03/06/25 06:25
03/06/25 06:25
Temp Pulse Resp BP Pulse Ox
97.7 F 75 16 140/77 93
03/06/25 07:00 03/06/25 08:18 03/06/25 07:00 03/06/25 08:22 03/06/25 07:00
Non-invasive Hgb result: 10.4
Physical Exam
-
HEENT: No pallor, cyanosis, or jaundice. Throat clear.
NECK: Supple. No JVD.
RESPIRATORY: Lungs clear to auscultation.
CVS: S1, S2 normal. RRR.�
ABDOMEN: Soft, non-tender. No distension.
EXTREMITIES: Strength equal, no calf pain with palpation/dorsiflexion. Calves soft.
BATTERY RECHARGER: AOx3. No focal deficits. administrative assistant front desk grossly intact
--- NOTE | 2025-03-06 10:40 | W.DS.TRANS ---
DC Summary - Health Insurance Agent
-
Discharge Instructions:
Sleep Apnea Risk Intermediate
Discharge Diagnosis/Procedures L knee OA s/p L TKA w/ Dr Harrison 03/05/25
Diet Other diet
Additional Diets Diabetic carb controlled x1 week for wound
healing/infection prevention.
Adequate hydration, minimize opioids, and wear
TEDs stockings to prevent low blood pressure/
dizziness.
Activity As tolerated,With Walker
Driving Restrictions Not until seen by your Dr
Bathing Restrictions OK to Shower
Blood Work CBC without diff on 03/10/25, with
results to primary care for further anemia
management.
Other Services PT,[facility]
Wound Care Dressing to be removed 1 week post-surgery.
Specialty Instructions Weigh Daily
Instructions:
Stand-Alone Forms: Total Hip/Knee Replacement D/C
Changes to Home Medications: Yes
Discharge Medications:
DC Medications w/original date entered in [employer]
macitentan 10 mg tablet (Opsumit) 10 mg PO DAILY PULMONARY ARTERIAL HYPERTENSION 07/26/16
venlafaxine 150 mg capsule,extended release 24 hr (Effexor XR) 150 mg PO DAILY Mental Health/Anxiety 09/18/17
atorvastatin 80 mg tablet 80 mg PO HS High Cholesterol 03/26/21
metoprolol tartrate 25 mg tablet 25 mg PO BID Blood Pressure 03/26/21
nitroglycerin 0.4 mg sublingual tablet 0.4 mg sublingual [id number] PRN chest pain 03/26/21
aspirin 81 mg tablet,delayed release 81 mg PO HS Blood Clot Prevention/Tx 03/01/23
apixaban 5 mg tablet (Eliquis) 5 mg PO BID Blood Clot Prevention/Tx 03/05/23
Held on 03/06/25. Instructions: Resume on 03/08/25.
cetirizine 10 mg tablet 10 mg PO DAILY Allergies 05/23/23
dicyclomine 10 mg capsule 10 mg PO QID PRN abdominal pain 07/07/23
hydroxychloroquine 200 mg tablet 200 mg PO DAILY LUPUS 07/07/23
levothyroxine 112 mcg tablet 112 mcg PO DAILY AT 0700 Thyroid 07/07/23
polyethylene glycol 3350 17 gram oral powder packet (Miralax) 17 g PO DAILYPRN PRN Constipation 07/07/23
leflunomide 20 mg tablet (Arava) 20 mg PO DAILY Autoimmune Disorder #0 tabs 07/11/23
paricalcitol 1 mcg capsule 1 mcg PO MOWEFR HYPERPARATHYROIDISM 02/14/25
allopurinol 100 mg tablet 50 mg PO DAILY Gout 02/17/25
dapagliflozin propanediol 10 mg tablet (Farxiga) 10 mg PO DAILY CHF 02/17/25
famotidine 40 mg tablet 40 mg PO QPM GERD 02/17/25
hydrocortisone 10 mg tablet 10 mg PO DAILY LUPUS/RA 02/17/25
Held on 03/06/25. Instructions: Resume on 03/09/25.
mupirocin 2 % topical ointment 1 applic intranasal BID #1 tube 02/17/25
omeprazole 40 mg capsule,delayed release 40 mg PO DAILY GERD 02/17/25
Saccharomyces boulardii 250 mg capsule (Florastor) 250 mg PO DAILY #7 caps 03/06/25
acetaminophen 500 mg tablet (Tylenol Extra Strength) 1,000 mg (2 x 500 mg) PO Q6H #60 tabs 03/06/25
amlodipine 2.5 mg tablet (Norvasc) 2.5 mg PO HS HYPERTENSION #0 tabs 03/06/25
apixaban 2.5 mg tablet (Eliquis) 2.5 mg PO BID #3 tabs 03/06/25
cefadroxil 500 mg capsule 500 mg PO DAILY #7 caps 03/06/25
clonazepam 1 mg tablet 1 mg PO HS PRN sleep #1 tab 03/06/25
dexamethasone 4 mg tablet 4 mg PO BID #5 tabs 03/06/25
docusate sodium 100 mg capsule 100 mg PO BID #30 caps 03/06/25
furosemide 20 mg tablet (Lasix) 20 mg PO MOWEFR #30 tabs 03/06/25
hydromorphone 2 mg tablet (Dilaudid) 2 - 4 mg (1 - 2 x 2 mg) PO Q6H PRN moderate-severe pain #30 tabs 03/06/25
isosorbide mononitrate 30 mg tablet,extended release 24 hr 30 mg PO DAILY Heart Disease/Condition #0 tabs 03/06/25
ondansetron 4 mg disintegrating tablet 4 mg PO Q8H PRN nausea and vomiting #30 tabs 03/06/25
sennosides 8.6 mg tablet (Juliet-linda) 17.2 mg (2 x 8.6 mg) PO BID #30 tabs 03/06/25
Home Medication Changes
Saccharomyces boulardii 250 mg capsule (Florastor) 250 mg PO DAILY #7 caps 03/06/25
acetaminophen 500 mg tablet (Tylenol Extra Strength) 1,000 mg (2 x 500 mg) PO Q6H #60 tabs 03/06/25
apixaban 2.5 mg tablet (Eliquis) 2.5 mg PO BID #3 tabs 03/06/25 - until POD 3
cefadroxil 500 mg capsule 500 mg PO DAILY #7 caps 03/06/25
dexamethasone 4 mg tablet 4 mg PO BID #5 tabs 03/06/25
docusate sodium 100 mg capsule 100 mg PO BID #30 caps 03/06/25
hydromorphone 2 mg tablet (Dilaudid) 2 - 4 mg (1 - 2 x 2 mg) PO Q6H PRN moderate-severe pain #30 tabs 03/06/25
ondansetron 4 mg disintegrating tablet 4 mg PO Q8H PRN nausea and vomiting #30 tabs 03/06/25
sennosides 8.6 mg tablet (Juliet-linda) 17.2 mg (2 x 8.6 mg) PO BID #30 tabs 03/06/25
Pending Results: No
[2025-03-06 11:53] VITALS: BP 144/74
== END 2025-03-06 12:00 | disposition home health service (06) | DRG 470 ==
LOC: 2 SOUTH 07:09
PROVIDERS: Physician Assistant; ADMITTING PHYSICIAN Orthopaedic Surgery; FAMILY PHYSICIAN Family Medicine; REFERRING PHYSICIAN Internal Medicine Cardiovascular Disease
PROC: 0SRD0J9 Replacement of Left Knee Joint with Synthetic Substitute, Cemented, Open Approach (ICD-10-PCS; 2025-03-05)
DX: M17.12 Unilateral primary osteoarthritis, left knee (principal); I50.32 Chronic diastolic (congestive) heart failure; N18.4 Chronic kidney disease, stage 4 (severe); I13.0 Hypertensive heart and chronic kidney disease with heart failure and stage 1 through stage 4 chronic kidney disease, or unspecified chronic kidney disease; D84.9 Immunodeficiency, unspecified; Z86.718 Personal history of other venous thrombosis and embolism; I95.1 Orthostatic hypotension; I25.2 Old myocardial infarction; I25.10 Atherosclerotic heart disease of native coronary artery without angina pectoris; I25.5 Ischemic cardiomyopathy; I27.20 Pulmonary hypertension, unspecified; Z95.0 Presence of cardiac pacemaker; I49.5 Sick sinus syndrome; I48.0 Paroxysmal atrial fibrillation; E03.9 Hypothyroidism, unspecified; E21.3 Hyperparathyroidism, unspecified; E78.5 Hyperlipidemia, unspecified; F32.A Depression, unspecified; F41.9 Anxiety disorder, unspecified; G47.00 Insomnia, unspecified; K21.9 Gastro-esophageal reflux disease without esophagitis; K58.9 Irritable bowel syndrome, unspecified; L80 Vitiligo; M06.9 Rheumatoid arthritis, unspecified; M81.0 Age-related osteoporosis without current pathological fracture; Z79.01 Long term (current) use of anticoagulants; Z79.82 Long term (current) use of aspirin; Z86.711 Personal history of pulmonary embolism; Z87.11 Personal history of peptic ulcer disease; Z95.5 Presence of coronary angioplasty implant and graft; Z96.642 Presence of left artificial hip joint; Z98.41 Cataract extraction status, right eye; Z98.42 Cataract extraction status, left eye; D63.1 Anemia in chronic kidney disease
CPT/HCPCS: 36415; 73560; 80048; 80053; 83036; 85014; 85018; 85027; 86850; 86900; 86901; 87070; 97110; 97116; 97162; 97166; 97535; C1713; C1776

== ENCOUNTER 2025-04-12 12:46 | Emergency (ER) | payer MEDICARE, BC, SELFPAY ==
[2025-04-12] VITALS (8 sets, daily range): BP systolic 122–176; BP diastolic 61–89; BMI 23.5
--- NOTE | 2025-04-12 13:32 | ED.GENMED ---
History of Present Illness
General
Chief Complaint: Back Pain
Source: patient
Exam Limitations: none
Time Seen by Provider: 04/12/25 13:22
History of Present Illness
History of Present Illness:
74-year-old female presents complaining of lower right back pain that radiates to the right buttock into the thigh. This has been getting worse since 2 days ago. She does note she fell about a month ago but did not have any pain at the time of the
fall and had not been evaluated for that. No bowel or bladder dysfunction. No fever. No numbness. The pain is made worse with bearing weight. No fevers.
Past History
Past History
ED Past Medical History: CAD, HTN, Hypercholesterolemia, Hypothyroidism, Other (Pancreatitis, irritable bowel), Other (Lyme's disease 3 years ago, pulmonary hypertension) and Other (Syncopal episodes, rheumatoid arthritis, osteoporosis, and ovarian
cysts)
ED Past Surgical History: Cardiac, Cholecystectomy, Gynecological and Orthopedic
Social History
Tobacco: Non-smoker
Alcohol: None
Drug: None
Personal:
Living: with family
Family History
Family History: Other (Not relevant)
Phy Exam
Physical Exam
Physical Exam:
General: Well-appearing female in no acute respiratory distress
HEENT: Normal cephalic atraumatic
Musculoskeletal exam: Mild tenderness over the right lumbosacral junction good range of motion to the lower extremities bilaterally
Vascular: 2+ DP pulse bilateral feet
Neurologic exam: Good strength to lower extremities good sensation to lower extremities. Negative straight leg raise. Bilateral patellar 2+
Skin is warm without rash
Course
Orders/Labs/Results
Orders:
Orders
04/12/25 13:33
Dexamethasone [Decadron] 10 mg PO NOW STA
Diazepam [Valium] 5 mg PO NOW STA
CR Hip - RT w/wo Pel 2-3 Vw* Urgent
Comment:
Reason For Exam: pain, posterior hip
Include a pelvis x-ray?: Yes
CR Lumbar Spine 2 Or 3 Views Stat
Comment:
Reason For Exam: back pain, fall
Vital Signs
Initial and Last Documented VS:
Initial Vital Signs
Temp Pulse Resp BP Pulse Ox
99 F 75 16 122/61 94
04/12/25 12:49 04/12/25 12:49 04/12/25 12:49 04/12/25 12:49 04/12/25 12:49
Last Documented Vital Signs
Temp Pulse Resp BP Pulse Ox
98.5 F 86 20 174/89 99
04/12/25 14:27 04/12/25 14:27 04/12/25 14:27 04/12/25 14:27 04/12/25 14:27
MDM/Problems Addressed
Differential Diagnosis Includes:
Lower back pain that radiates down the right leg into the thigh. No red flags to suggest cauda equina. No fever to suggest infectious source. Consider radiculopathy. No rash to suggest shingles. She did fall a month ago which seems to be
somewhat removed but given the low back pain will order x-rays. Try to treat symptoms.
*Pulse Oximetry
SaO2: 94
Oxygen Mode of Delivery: Room air
Patient hypoxic: no
*Critical Care Note
Total Time (30-74mins, 75-104mins- exclusive of procedures): Not Applicable
Update Note
Update Note:
X-rays show degenerative disc disease most pronounced at L4-L5. No hip fracture. Patient with minimal improvement after medicine here but she is somewhat limited as far as what we can give. She is on Dilaudid at home which she will continue.
Will add prednisone. She has tried gabapentin in the past without relief. She cannot tolerate NSAIDs due to kidney disease. No indication for admission will refer to pain management
ED Attending Note
-
Portions of this chart may have been created with voice recognition software.� Occasional wrong word or��sound alike� substitutions may have occurred due to the inherent limitations of voice recognition software.
Discharge Plan
Departure
Patient Disposition: Home (Routine Discharge)
Date of Disposition: 04/12/25
Time of Disposition: 16:18
Patient with high blood pressure during this ER visit?: No
Discharge Problem:
Radiculopathy
Prescriptions:
New
prednisone 10 mg Tablet
See Rx Instructions .ROUTE .COMPLEX Qty: 30 0RF
Rx Instructions:
Take By Mouth:
40 mg daily x3 days, 30 mg daily x3 days,
20 mg daily x3 days, 10 mg daily x3 days.
No Action
Opsumit 10 MG tablet
10 mg PO DAILY
venlafaxine [Effexor XR] 150 MG capsule,extended release 24hr
150 mg PO DAILY
atorvastatin 80 MG tablet
80 mg PO HS
metoprolol tartrate 25 MG tablet
25 mg PO BID
nitroglycerin 0.4 MG tablet, sublingual
0.4 mg sublingual [id number] PRN (Reason: chest pain)
aspirin 81 mg Tablet,Delayed Release (Dr/Ec)
81 mg PO HS
Eliquis 5 MG tablet
5 mg PO BID
cetirizine 10 mg Tablet
10 mg PO DAILY
polyethylene glycol 3350 [Miralax] 17 gram Powder In Packet
17 g PO DAILYPRN PRN (Reason: Constipation)
Patient Comments:
07/07/2023, patient states that she takes this medication either in the morning or at night every day.
hydroxychloroquine 200 mg Tablet
200 mg PO DAILY
dicyclomine 10 mg Capsule
10 mg PO QID PRN (Reason: abdominal pain)
levothyroxine 112 mcg Tablet
112 mcg PO DAILY AT 0700
leflunomide [Arava] 20 MG tablet
20 mg PO DAILY Qty: 0 0RF
paricalcitol 1 mcg Capsule
1 mcg PO MOWEFR
famotidine 40 mg Tablet
40 mg PO QPM
allopurinol 100 mg Tablet
50 mg PO DAILY
omeprazole 40 mg Capsule,Delayed Release(Dr/Ec)
40 mg PO DAILY
hydrocortisone 10 mg Tablet
10 mg PO DAILY
dapagliflozin propanediol [Farxiga] 10 mg Tablet
10 mg PO DAILY
mupirocin 2 % ointment
1 applic intranasal BID Qty: 1 0RF
Patient Comments:
applied this am 03/05/25
docusate sodium 100 mg Capsule
100 mg PO BID Qty: 30 0RF
Eliquis 2.5 mg Tablet
2.5 mg PO BID Qty: 3 0RF
Rx Instructions:
Cut 5 mg tab in 08/01 (= 2.5 mg) and take 8/7 PM, 8/8 AM and PM.
Can resume 5 mg 2x daily dosing 8/9 AM.
sennosides [Juliet-linda] 8.6 mg Tablet
17.2 mg PO BID Qty: 30 0RF
ondansetron 4 mg tablet,disintegrating
4 mg PO Q8H PRN (Reason: nausea and vomiting) Qty: 30 0RF
Saccharomyces boulardii [Florastor] 250 mg capsule
250 mg PO DAILY Qty: 7 0RF
Rx Instructions:
Over the counter. Take while on antibiotic.
If unavailable, choose a different probiotic.
isosorbide mononitrate 30 MG tablet extended release 24 hr
30 mg PO DAILY Qty: 0 0RF
Rx Instructions:
HOLD IF systolic blood pressure <130 while on post-surgical narcotics.
clonazepam 1 mg tablet
1 mg PO HS PRN (Reason: sleep) Qty: 1 0RF
Patient Comments:
07/07/2023, patient filled this medication on 05/18/2023 for 90 tablets according to PDMP.
Rx Instructions:
Home medication. Caution with Dilaudid - can cause oversedation.
Space out from narcotic.
amlodipine [Norvasc] 2.5 mg tablet
2.5 mg PO HS Qty: 0 0RF
Rx Instructions:
HOLD IF systolic blood pressure <130 while on post-surgical narcotics.
acetaminophen [Tylenol Extra Strength] 500 mg Tablet
1,000 mg PO Q6H Qty: 60 0RF
Rx Instructions:
DO NOT exceed >4000 mg daily.
furosemide [Lasix] 20 mg tablet
20 mg PO MOWEFR Qty: 30 1RF
Rx Instructions:
HOLD IF systolic blood pressure <130 while on post-surgical narcotics.
Referrals:
Shayna Nielsen MD [Family Provider, Family Practice]
Yinka Jovel MD [Active, Orthopedics]
Activity Restrictions/Additional Instructions:
Use prednisone as directed. Follow-up with back pain specialist. Return if needed
Interventions
Interventions:
*Risk Screen - Suicide Last Done: 04/12/25 12:49
*General Assessment Last Done: 04/12/25 14:27
*Neglect/Abuse Screening Last Done: 04/12/25 12:49
*ED- Fall Risk Assessment Last Done: 04/12/25 14:27
*ED COVID-19 Vaccine History Last Done: 04/12/25 14:27
ED-Musculoskeletal Assessment Last Done: 04/12/25 14:27
Discharge Date and Time
Print Language: LUXEMBOURGISH
[2025-04-12] MEDS: DECADRON 10 MG PO (14:15)
[2025-04-12] MEDS: VALIUM 5 MG PO (14:15)
[2025-04-12] MEDS: MAALOX 30 ML PO (16:40)
== END 2025-04-12 16:41 | disposition home or self-care (01) ==
LOC: EMR 12:46
PROVIDERS: EMERGENCY PHYSICIAN Emergency Medicine; FAMILY PHYSICIAN Family Medicine
DX: M51.16 Intervertebral disc disorders with radiculopathy, lumbar region (principal); I25.10 Atherosclerotic heart disease of native coronary artery without angina pectoris; I10 Essential (primary) hypertension; E78.00 Pure hypercholesterolemia, unspecified; I27.20 Pulmonary hypertension, unspecified; E03.9 Hypothyroidism, unspecified; M06.9 Rheumatoid arthritis, unspecified; M81.0 Age-related osteoporosis without current pathological fracture
CPT/HCPCS: 99283; 72100; 73502

== ENCOUNTER → 2025-05-13 10:12 | Outpatient (REF) | payer MEDICARE, BC, SELFPAY | LOC: HWRAD 10:12 | PROVIDERS: ATTENDING PHYSICIAN Pain Medicine Interventional Pain Medicine; FAMILY PHYSICIAN Family Medicine | DX: M54.16 Radiculopathy, lumbar region (principal); M32.8 Other forms of systemic lupus erythematosus; E06.3 Autoimmune thyroiditis; E34.9 Endocrine disorder, unspecified; E55.9 Vitamin D deficiency, unspecified; E83.52 Hypercalcemia | CPT/HCPCS: 72131 ==

== ENCOUNTER → 2025-05-20 12:26 | Outpatient (REF) | payer MEDICARE, BC, SELFPAY ==
[2025-05-20 13:57] LABS: Vitamin D, 25-OH*** 19.6 ng/mL (30-80)
[2025-05-20 14:11] LABS: TSH 0.78 uIU/ml (0.47-4.68)
[2025-05-20 14:12] LABS: ALT (SGPT) 29 U/L (0-35); AST (SGOT) 22 U/L (14-36); Albumin 4.1 g/dl (3.5-5.0); Alkaline Phosphatase 57 U/L (38-126); Blood Urea Nitrogen 27 mg/dl (7-17); Calcium 8.9 mg/dl (8.4-10.2); Carbon Dioxide 24 mmol/L (22-30); Chloride 106 mmol/L (98-107); Glucose 113 mg/dl (70-99); Potassium 4.2 mmol/L (3.5-5.1); Sodium 136 mmol/L (135-145); Total Protein 6.7 g/dl (6.3-8.2); eGFR 33.42
[2025-05-20 14:20] LABS: Urine Character Clear (Clear)
[2025-05-20 15:06] LABS: Urine Squamous Cell >30 /LPF (Few)
[2025-05-20 15:07] LABS: Urine Urothelial Cell 0-2 /LPF (FEW)
[2025-05-20 15:08] LABS: Urine Red Blood Cell 0-2 /HPF (0-2); Urine White Cell 0-2 /HPF (0-5)
[2025-05-23 01:59] LABS: ds-DNA Ab, IgG Reflex To Titer 67 IU (0-24)
== END ==
LOC: REG 12:26
PROVIDERS: ATTENDING PHYSICIAN Specialist; FAMILY PHYSICIAN Family Medicine; OTHER PHYSICIAN Internal Medicine Endocrinology, Diabetes & Metabolism; OTHER PHYSICIAN Internal Medicine Rheumatology
DX: N18.4 Chronic kidney disease, stage 4 (severe) (principal); N28.9 Disorder of kidney and ureter, unspecified; E78.5 Hyperlipidemia, unspecified; D63.1 Anemia in chronic kidney disease; E06.3 Autoimmune thyroiditis; E34.9 Endocrine disorder, unspecified; E55.9 Vitamin D deficiency, unspecified; E83.52 Hypercalcemia; M32.8 Other forms of systemic lupus erythematosus
CPT/HCPCS: 36415; 80053; 81003; 81015; 82306; 82330; 83970; 84100; 84439; 84443; 86160; 86225

== ENCOUNTER 2025-05-22 10:13 | Emergency (ER) | payer MEDICARE, BC, SELFPAY ==
[2025-05-22 10:24] VITALS: BP 206/115
[2025-05-22] MEDS: VALIUM 5 MG PO (11:34)
--- NOTE | 2025-05-22 11:36 | ED.GENMED ---
History of Present Illness
General
Chief Complaint: Blood Pressure Problem
Source: patient
Exam Limitations: none
Time Seen by Provider: 05/22/25 10:46
Nursing documentation reviewed up to this point in time: agreed with
History of Present Illness
History of Present Illness:
Patient is a 74-year-old female with history atrial fibrillation on Eliquis, CAD, hypertension, CKD who presents to the emergency department for elevated blood pressure. Patient was at an appointment to receive an epidural for chronic back pain
when she was found to have elevated blood pressures of 200/100s. She had 3 similar readings and was sent to the emergency department for evaluation.
Patient states she overall feels well, although anxious. She does report a dull headache. She states it was gradual onset since arriving to the emergency department today and denies any sudden onset or severe quality. She denies any chest pain,
shortness of breath, visual changes. She denies any numbness/tingling or unilateral weakness in extremities. No tearing back pain.
Patient does suffer from chronic right lower back pain, which is why she was scheduled for an epidural.
Patient follows with Dr. Hope who manages her blood pressure. She takes metoprolol 25 mg twice daily and amlodipine 2.5 mg nightly.
Past History
Past History
ED Past Medical History: CAD, HTN, Hypercholesterolemia, Hypothyroidism, Other (Pancreatitis, irritable bowel), Other (Lyme's disease 3 years ago, pulmonary hypertension) and Other (Syncopal episodes, rheumatoid arthritis, osteoporosis, and ovarian
cysts)
ED Past Surgical History: Cardiac, Cholecystectomy, Gynecological and Orthopedic
Social History
Tobacco: Non-smoker
Alcohol: None
Drug: None
Personal:
Living: with family
Family History
Family History: Other (Not relevant)
Review of Systems
Review of Systems
Allergies reviewed?: Yes
All Other Systems: ROS reviewed and negative except as documented in HPI and ROS
Phy Exam
Physical Exam
Physical Exam:
Vitals: Hypertensive, otherwise vital signs stable. Afebrile
General: Patient is anxious appearing, tremulous
Skin: Warm and dry, no rashes or lesions
Head: Normocephalic, atraumatic
Eyes: Sclera nonicteric. No nystagmus.
Throat: Protecting airway
Neck: Normal ROM, no cervical spine tenderness, no meningismus
Cardiac: Regular rate and rhythm, no murmurs.
Pulm: Normal respiratory effort. Lungs clear bilaterally
Abdomen: No abdominal tenderness.
Extremities: No evidence of cyanosis or edema. Strength 5/5 in bilateral upper and lower extremities
Neuro: AAOx3. CN II-XII grossly intact. No facial droop or asymmetry. Normal finger-nose no focal neurologic deficits.
Psychiatric: Normal affect.
Course
Orders/Labs/Results
Orders:
Orders
05/22/25 11:12
Diazepam [Valium] 5 mg PO NOW STA
05/22/25 11:13
Electrocardiogram (*1) Urgent
Reason for Study: Hypertension, Benign
CT Head W/o Iv Contrast Urgent
Comment:
Reason For Exam: HTN, headache
EKG- Treatment ONCE
05/22/25 11:31
Complete Blood Count/With Diff Urgent
Comprehensive Metabolic Panel Urgent
05/22/25 12:27
Acetaminophen [Tylenol] 650 mg PO NOW STA
05/22/25 12:51
Acetaminophen [Tylenol] 325 mg .ROUTE .STK-MED ONE
Abnormal Lab Results
05/22/25
11:31
RBC 3.85 L 10^6/uL
(4.20-5.40)
Hgb 11.6 L g/dL
(12.0-16.0)
Hct 36.9 L %
(37.0-47.0)
MCHC 31.4 L g/dL
(33.0-37.0)
RDW 15.0 H %
(11.5-14.5)
Abs Immat Gran (auto) 0.1 H 10^3/uL
(0-0.05)
Absolute Neuts (auto) 7.8 H 10^3/uL
(1.4-6.5)
Absolute Lymphs (auto) 1.1 L 10^3/uL
(1.2-3.4)
Absolute Monos (auto) 0.7 H 10^3/uL
(0.1-0.6)
Immature Gran % 1.2 H %
(0-0.5)
Neutrophils % 79.8 H %
(42.2-75.2)
Lymphocytes % 11.2 L %
(20.5-51.1)
Chloride 110 H mmol/L
(98-107)
BUN 33 H mg/dl
(7-17)
Creatinine 1.6 H mg/dL
(0.6-1.0)
ALT 39 H U/L
(0-35)
05/22/25 11:31
05/22/25 11:31
Vital Signs
Blood pressure: 194/98
Initial and Last Documented VS:
Initial Vital Signs
Temp Pulse Resp BP Pulse Ox
98.6 F 72 16 206/115 98
05/22/25 10:24 05/22/25 10:24 05/22/25 10:24 05/22/25 10:24 05/22/25 10:24
Last Documented Vital Signs
Temp Pulse Resp BP Pulse Ox
98.6 F 70 19 177/87 96
05/22/25 10:24 05/22/25 14:00 05/22/25 14:00 05/22/25 14:00 05/22/25 13:45
MDM/Problems Addressed
Differential Diagnosis Includes:
Not limited to: Asymptomatic hypertension, acute dehydration, chronic back pain, medication side effect, intracranial hemorrhage, etc.
MDM/Problems Addressed:
74-year-old female presents with incidentally discovered hypertension noted at an outpatient visit prior to a scheduled epidural for chronic back pain. She reports associated headache but denies chest pain, shortness of breath, back pain, visual
changes, or focal neurological symptoms. On arrival, she is hypertensive with otherwise stable vital signs. She appears mildly anxious but is in no acute distress. Neurological exam is non-focal, and cardiopulmonary assessment is unremarkable.
Given her significant hypertension and headache, basic labs, EKG, and CT head were obtained to evaluate for secondary causes or hypertensive emergency. Labs revealed stable renal insufficiency with no acute metabolic derangements. EKG demonstrated a
paced rhythm without ischemic changes. CT head showed no acute intracranial abnormalities.
The patient�s blood pressure improved slightly after receiving oral Valium for her chronic back pain. Her headache also improved with acetaminophen. There was no evidence of end-organ damage or acute neurologic process. The hypertension is likely
multifactorial, related to pain, anxiety, and chronic poorly controlled hypertension.
Given stable exam, improving symptoms, and absence of emergent findings, IV antihypertensive therapy not indicated. Her amlodipine dose was increased to 5 mg nightly, and she was advised on close outpatient follow-up with her java [employer] lead for blood
pressure monitoring and medication adjustment. Strict return precautions were discussed, and the patient was comfortable with the plan for discharge home in stable condition.
Chronic conditions affecting care:
Hypertension, atrial fibrillation on Eliquis
Acute Exacerbation and/or Progression of Chronic Illness:
Acutely hypertensive
*Radiology
Radiology exam reviewed: radiology read reviewed
*Pulse Oximetry
SaO2: 98
Oxygen Mode of Delivery: Room air
Patient hypoxic: no
*EKG
Interpreted by ED Provider?: Yes
EKG Intrepretation Date: 05/22/25
Interpretation: abnormal
Comparison EKG: changes noted
Heart Rate: 73
Rate: normal
Rhythm: sinus
Chappell: normal axis
Ischemia: no ischemia
*Media Planner Interpretation
Rate: normal
Interpretation: normal
Heart Rate: 70
Rhythm: sinus
*Critical Care Note
Total Time (30-74mins, 75-104mins- exclusive of procedures): Not Applicable
Patient Management
Discussion with other providers: Corporate [employer] Analyst (Case discussed with attending ED physician)
ED Attending Note
-
Portions of this chart may have been created with voice recognition software.� Occasional wrong word or��sound alike� substitutions may have occurred due to the inherent limitations of voice recognition software.
Discharge Plan
Departure
Patient Disposition: Home (Routine Discharge)
Date of Disposition: 05/22/25
Time of Disposition: 14:07
Patient with high blood pressure during this ER visit?: Yes
Discharge Problem:
Hypertension
Instructions: High Blood Pressure (DC), BLOOD PRESSURE
Prescriptions:
New
amlodipine 5 mg tablet
5 mg PO HS Qty: 30 0RF
No Action
Opsumit 10 MG tablet
10 mg PO DAILY
venlafaxine [Effexor XR] 150 MG capsule,extended release 24hr
150 mg PO DAILY
atorvastatin 80 MG tablet
80 mg PO HS
metoprolol tartrate 25 MG tablet
25 mg PO BID
nitroglycerin 0.4 MG tablet, sublingual
0.4 mg sublingual [id number] PRN (Reason: chest pain)
aspirin 81 mg Tablet,Delayed Release (Dr/Ec)
81 mg PO HS
Eliquis 5 MG tablet
5 mg PO BID
cetirizine 10 mg Tablet
10 mg PO DAILY
polyethylene glycol 3350 [Miralax] 17 gram Powder In Packet
17 g PO DAILYPRN PRN (Reason: Constipation)
Patient Comments:
07/07/2023, patient states that she takes this medication either in the morning or at night every day.
hydroxychloroquine 200 mg Tablet
200 mg PO DAILY
dicyclomine 10 mg Capsule
10 mg PO QID PRN (Reason: abdominal pain)
levothyroxine 112 mcg Tablet
112 mcg PO DAILY AT 0700
leflunomide [Arava] 20 MG tablet
20 mg PO DAILY Qty: 0 0RF
paricalcitol 1 mcg Capsule
1 mcg PO MOWEFR
famotidine 40 mg Tablet
40 mg PO QPM
allopurinol 100 mg Tablet
50 mg PO DAILY
omeprazole 40 mg Capsule,Delayed Release(Dr/Ec)
40 mg PO DAILY
hydrocortisone 10 mg Tablet
10 mg PO DAILY
dapagliflozin propanediol [Farxiga] 10 mg Tablet
10 mg PO DAILY
mupirocin 2 % ointment
1 applic intranasal BID Qty: 1 0RF
Patient Comments:
applied this am 03/05/25
docusate sodium 100 mg Capsule
100 mg PO BID Qty: 30 0RF
Eliquis 2.5 mg Tablet
2.5 mg PO BID Qty: 3 0RF
Rx Instructions:
Cut 5 mg tab in 08/01 (= 2.5 mg) and take 8/7 PM, 8/8 AM and PM.
Can resume 5 mg 2x daily dosing 8/9 AM.
sennosides [Juliet-linda] 8.6 mg Tablet
17.2 mg PO BID Qty: 30 0RF
ondansetron 4 mg tablet,disintegrating
4 mg PO Q8H PRN (Reason: nausea and vomiting) Qty: 30 0RF
Saccharomyces boulardii [Florastor] 250 mg capsule
250 mg PO DAILY Qty: 7 0RF
Rx Instructions:
Over the counter. Take while on antibiotic.
If unavailable, choose a different probiotic.
isosorbide mononitrate 30 MG tablet extended release 24 hr
30 mg PO DAILY Qty: 0 0RF
Rx Instructions:
HOLD IF systolic blood pressure <130 while on post-surgical narcotics.
clonazepam 1 mg tablet
1 mg PO HS PRN (Reason: sleep) Qty: 1 0RF
Patient Comments:
07/07/2023, patient filled this medication on 05/18/2023 for 90 tablets according to PDMP.
Rx Instructions:
Home medication. Caution with Dilaudid - can cause oversedation.
Space out from narcotic.
amlodipine [Norvasc] 2.5 mg tablet
2.5 mg PO HS Qty: 0 0RF
Rx Instructions:
HOLD IF systolic blood pressure <130 while on post-surgical narcotics.
acetaminophen [Tylenol Extra Strength] 500 mg Tablet
1,000 mg PO Q6H Qty: 60 0RF
Rx Instructions:
DO NOT exceed >4000 mg daily.
furosemide [Lasix] 20 mg tablet
20 mg PO MOWEFR Qty: 30 1RF
Rx Instructions:
HOLD IF systolic blood pressure <130 while on post-surgical narcotics.
prednisone 10 mg Tablet
See Rx Instructions .ROUTE .COMPLEX Qty: 30 0RF
Rx Instructions:
Take By Mouth:
40 mg daily x3 days, 30 mg daily x3 days,
20 mg daily x3 days, 10 mg daily x3 days.
Referrals:
Shayna Nielsen MD [Family Provider, Family Practice]
Henrietta Hope MD [Active, Cardiology] - Next open appointment
Activity Restrictions/Additional Instructions:
RETURN TO THE EMERGENCY DEPARTMENT WITH ANY SEVERE HEADACHE, VISUAL CHANGES, DIZZINESS, SEVERE BACK PAIN, CHEST PAIN OR SHORTNESS OF BREATH, NUMBNESS/WEAKNESS IN EXTREMITIES, CHANGES IN MENTAL STATUS, OR ANY OTHER CONCERNS
- Your blood pressure was elevated today in the emergency department. Your head CT showed no acute abnormalities. Please continue to take your metoprolol as directed. I have sent a prescription for an increase in your amlodipine dose to 5 mg at
night.
- It is important to stay well-hydrated. Continue to treat back pain as directed.
- Monitor your blood pressure at home and if you are noticing low blood pressures, you should revert to the 2.5 mg of amlodipine.
- Follow-up with cardiology for further evaluation/management and to ensure that your symptoms are improving
Monitor your symptoms closely and return to the emergency department with any acute worsening/new symptoms or any other concerns
Interventions
Interventions:
*Risk Screen - Suicide Last Done: 05/22/25 10:24
*Neglect/Abuse Screening Last Done: 05/22/25 10:24
*Nursing Disposition Last Done: 05/22/25 14:51
ED- Cardiac Assessment Last Done: 05/22/25 11:35
ED- Neurological Assessment Last Done: 05/22/25 11:35
ED- Pulmonary Assessment Last Done: 05/22/25 11:35
Discharge Date and Time
Discharge Date/Time: 05/22/25 14:52
Print Language: [id number]
[2025-05-22 11:40] LABS: Hematocrit 36.9 % (37.0-47.0); Hemoglobin 11.6 g/dL (12.0-16.0); Mean Corp Hgb Conc. 31.4 g/dL (33.0-37.0); Mean Corpuscular Volume 95.8 fL (81.0-99.0); Nucleated Red Blood Cells % 0 %; Platelet Count 196 10^3/uL (130-400); Red Cell Dist. Width 15.0 % (11.5-14.5)
[2025-05-22 11:58] VITALS: BP 200/96
[2025-05-22 12:00] VITALS: BP 194/98
[2025-05-22 12:11] LABS: ALT (SGPT) 39 U/L (0-35); AST (SGOT) 28 U/L (14-36); Albumin 3.9 g/dl (3.5-5.0); Alkaline Phosphatase 43 U/L (38-126); Blood Urea Nitrogen 33 mg/dl (7-17); Calcium 9.0 mg/dl (8.4-10.2); Carbon Dioxide 25 mmol/L (22-30); Chloride 110 mmol/L (98-107); Glucose 84 mg/dl (70-99); Potassium 4.1 mmol/L (3.5-5.1); Sodium 137 mmol/L (135-145); Total Protein 6.4 g/dl (6.3-8.2); eGFR 33.42
[2025-05-22] MEDS: TYLENOL 650 MG PO (12:50)
[2025-05-22 13:00] VITALS: BP 195/88
[2025-05-22 14:00] VITALS: BP 177/87
== END 2025-05-22 14:52 | disposition home or self-care (01) ==
LOC: EMR 10:13
PROVIDERS: Physician Assistant; EMERGENCY PHYSICIAN Student in an Organized Health Care Education/Training Program; FAMILY PHYSICIAN Family Medicine
DX: I12.9 Hypertensive chronic kidney disease with stage 1 through stage 4 chronic kidney disease, or unspecified chronic kidney disease (principal); N18.9 Chronic kidney disease, unspecified; I25.10 Atherosclerotic heart disease of native coronary artery without angina pectoris; I48.91 Unspecified atrial fibrillation; I27.20 Pulmonary hypertension, unspecified; E78.00 Pure hypercholesterolemia, unspecified; E03.9 Hypothyroidism, unspecified; M54.50 Low back pain, unspecified; G89.29 Other chronic pain; M06.9 Rheumatoid arthritis, unspecified; M81.0 Age-related osteoporosis without current pathological fracture; Z79.01 Long term (current) use of anticoagulants
CPT/HCPCS: 99284; 70450; 80053; 85025; 93005

== ENCOUNTER 2025-05-29 09:58 | Inpatient (IN) | payer MEDICARE, BC, SELFPAY ==
[2025-05-29] VITALS (24 sets, daily range): BP systolic 115–176; BP diastolic 44–106; BMI 27.7
[2025-05-29 07:39] LABS: Hematocrit 38.9 % (37.0-47.0); Hemoglobin 12.1 g/dL (12.0-16.0); Mean Corp Hgb Conc. 31.1 g/dL (33.0-37.0); Mean Corpuscular Volume 95.8 fL (81.0-99.0); Nucleated Red Blood Cells % 0 %; Platelet Count 179 10^3/uL (130-400); Red Cell Dist. Width 14.7 % (11.5-14.5)
[2025-05-29 07:50] LABS: ALT (SGPT) 31 U/L (0-35); AST (SGOT) 21 U/L (14-36); Albumin 3.7 g/dl (3.5-5.0); Alkaline Phosphatase 50 U/L (38-126); Blood Urea Nitrogen 32 mg/dl (7-17); Calcium 9.2 mg/dl (8.4-10.2); Carbon Dioxide 23 mmol/L (22-30); Chloride 109 mmol/L (98-107); Glucose 77 mg/dl (70-99); Lipase 391 U/L (23-300); Potassium 3.8 mmol/L (3.5-5.1); Sodium 138 mmol/L (135-145); Total Protein 6.2 g/dl (6.3-8.2); eGFR 31.08
[2025-05-29 08:06] LABS: Troponin I 0.350 ng/ml
--- NOTE | 2025-05-29 08:15 | ED.GENMED ---
History of Present Illness
General
Chief Complaint: Chest Pain
Time Seen by Provider: 05/29/25 07:43
History of Present Illness
History of Present Illness:
74-year-old female with history of CAD status post stenting, atrial fibrillation on Eliquis, hypertension, sick sinus syndrome with pacemaker presenting to the emergency department for chest pain. Patient reports that she woke up around 4 AM with
'crushing chest pain '. Pain was radiating to bilateral upper extremities. She rested for about an hour, however pain was not improving. She notes on the way to the hospital, pain did improve slightly. She was concerned because pain felt very
similar to prior cardiac events. Denies associated dyspnea. Denies abdominal pain. Denies nausea or vomiting. Notes that she was supposed to go to her orthopedic doctor today for spinal injection secondary to chronic back issues. For this
reason she has not had her Eliquis for the past 5 days. Patient follows with Dr. Hope. Denies additional acute medical complaints.
Past History
Past History
ED Past Medical History: CAD, HTN, Hypercholesterolemia, Hypothyroidism, Other (Pancreatitis, irritable bowel), Other (Lyme's disease 3 years ago, pulmonary hypertension) and Other (Syncopal episodes, rheumatoid arthritis, osteoporosis, and ovarian
cysts)
ED Past Surgical History: Cardiac, Cholecystectomy, Gynecological and Orthopedic
Social History
Tobacco: Non-smoker
Alcohol: None
Drug: None
Personal:
Living: with family
Family History
Family History: Other (Not relevant)
Phy Exam
Physical Exam
Physical Exam:
General: Well-appearing, no clinical signs of dehydration, nontoxic and in no acute distress
HEENT: protecting airway
Neck: appears supple
CV: Normal heart rate, regular rhythm
Resp: No accessory muscle use, no increased work of breathing, lungs clear to auscultation bilaterally
Abd: Soft and non-distended, no tenderness to palpation
Extremities: No deformities, no swelling
Neuro: alert, no focal neurologic deficit
: deferred
Rectal: deferred
Psych: Normal affect
Skin: Intact
Scores
Heart Score for Chest Pain Patients
STEMI patient?: No
History: Highly Suspicious
ECG: Nonspecific Repolarization
Age: >/= 65 years
Risk Factors: >/= 3 Risk Factors or History of CAD
Troponin: >1 - <3 x Normal Limit
Heart Score for Chest Pain Patients: 8
Heart Score Risk: 72.7 % MACE over next 6 weeks
Course
Orders/Labs/Results
Orders:
Orders
05/29/25 07:07
EKG [Electrocardiogram (*1)] Urgent
Reason for Study: Chest Pain
EKG- Treatment ONCE
05/29/25 07:23
Complete Blood Count/With Diff Urgent
Comprehensive Metabolic Panel Urgent
Lipase Urgent
Troponin I Urgent
05/29/25 07:53
Aspirin Chewable [Low Strength Aspirin] 324 mg PO NOW STA
Nitroglycerin Sublingual [Nitrostat (Sublingual)] 0.4 mg SL [id number] PRN
05/29/25 08:07
CR Chest - 2 Views Urgent
Comment:
Reason For Exam: chest pain
05/29/25 08:34
PTT Urgent
05/29/25 08:44
PTT Urgent
Comment: Obtain baseline before beginning heparin infusion if not already collected
Heparin 4,000 units IV NOW STA
Pharmacy Request to Place See Dose Instructions PO NOW STA
Discontinue all Active Warfarin orders?: Yes
Nursing to Place Non Medication Order As Directed
Physician Order: PTT 6 hours after initial start of Heparin infusion
05/29/25 08:45
Heparin 27695 Units/250 ml 25,000 units in 250 ml IV PER PROTOCOL
Weight to be used for heparin protocol in kilograms (kg):: 82.6
Protocol:: Cardiac Tx/Acute Coronary
PTT Goal Range to be used:: PTT 73 to 111 seconds
Order type:: Initial
INITIAL Infusion Dose (UNITS/KG/hr) & then follow protocol:: 12 units/kg/hr
Infusion Dose in UNITS/hr & then follow protocol (UNITS/hr):: 1,000
INFUSION RATE in mL/hr & then follow protocol (mL/hr):: 10
PTT less than or equal to 64 seconds:: Increase rate by 200 units/hr (+ 2 mL/hr)
PTT 64.1 to 72.9 seconds:: Increase rate by 100 units/hr (+ 1 mL/hr)
PTT 73 to 111 seconds:: Target Range. No change in rate.
PTT 111.1 to 130.9 seconds:: Decrease rate by 100 units/hr (- 1 mL/hr)
PTT 131 to 199.9 seconds:: HOLD for 1 hr. Then decrease rate by 200 units/hr (- 2 mL/hr)
PTT greater than or equal to 200 seconds:: HOLD for 2 hrs & Notify Provider. Then decrease by 200 units/hr (-
2 mL/hr)
Lab follow-up:: Each change, PTT q6h until 2 consecutive are therapeutic. Then PTT
daily.
Nitroglycerin 100 mg/250 ml [Nitroglycerin Premix] 100 mg in 250 ml IV PER PROTOCOL
Currently infusing. Continue current dose and titrate:: Yes
Titrate to keep:: Chest Pain Free
Titrate by mcg/min:: 5 mcg/min, may increase by 10 mcg/min if dose > 20 mcg/min
Frequency of titrations (minutes):: every 3-5 minutes
Maximum dose in mcg/min:: 200
Begin to taper infusion when:: Remained at goal for 2hrs
Taper by mcg/min:: 5 mcg/min
Frequency of taper (minutes) if patient maintains goal:: 30
Taper to off?: Yes
If infusion off & no longer maintaining goal:: Contact Provider
05/29/25 09:[address] See Dose Instructions IV DIRECTED
Abnormal Lab Results
05/29/25
07:23
RBC 4.06 L 10^6/uL
(4.20-5.40)
MCHC 31.1 L g/dL
(33.0-37.0)
RDW 14.7 H %
(11.5-14.5)
Abs Immat Gran (auto) 0.1 H 10^3/uL
(0-0.05)
Absolute Neuts (auto) 8.2 H 10^3/uL
(1.4-6.5)
Absolute Lymphs (auto) 1.1 L 10^3/uL
(1.2-3.4)
Absolute Monos (auto) 0.8 H 10^3/uL
(0.1-0.6)
Immature Gran % 1.3 H %
(0-0.5)
Neutrophils % 79.9 H %
(42.2-75.2)
Lymphocytes % 10.7 L %
(20.5-51.1)
Chloride 109 H mmol/L
(98-107)
BUN 32 H mg/dl
(7-17)
Creatinine 1.7 H mg/dL
(0.6-1.0)
Troponin I 0.350 H* ng/ml
Total Protein 6.2 L g/dl
(6.3-8.2)
Lipase 391 H U/L
(23-300)
05/29/25 07:23
05/29/25 07:23
Vital Signs
Initial and Last Documented VS:
Initial Vital Signs
Temp Pulse Resp BP Pulse Ox
98.6 F 76 18 165/93 97
05/29/25 07:15 05/29/25 07:15 05/29/25 07:15 05/29/25 07:15 05/29/25 07:15
Last Documented Vital Signs
Temp Pulse Resp BP Pulse Ox
98.6 F 70 13 169/98 98
05/29/25 07:15 05/29/25 08:00 05/29/25 08:00 05/29/25 08:16 05/29/25 08:17
MDM/Problems Addressed
MDM/Problems Addressed:
74-year-old female with history of CAD status post stenting presenting for chest pain. Vital signs on arrival significant for mild hypertension.
On exam patient is resting comfortably, no acute distress or discomfort. Does note residual chest pain, however has improved since onset. EKG obtained in triage, without significant change from prior. Unremarkable cardiac and pulmonary exam,
however given patient's prior history and concerning story, concern for ACS. Plan for laboratory analysis including troponin. Will also obtain chest x-ray imaging. Will start patient on aspirin and nitro.
08:20 - Patient's troponin is elevated. At this time concern for NSTEMI. Did discuss with cardiology who will come and evaluate.
08:50 - Cardiology at bedside. Plan for heparin and nitro drip with likely catheterization today
*Pulse Oximetry
SaO2: 98
Oxygen Mode of Delivery: Room air
Patient hypoxic: no
*EKG
Interpreted by ED Provider?: Yes
EKG Intrepretation Date: 05/29/25
EKG Intrepretation Time: 08:34
Interpretation: abnormal
Comparison EKG: no changes (05/22/25)
Heart Rate: 72
Rate: normal
Rhythm: sinus
[place]: normal axis
Interval: normal interval
QRS Pattern: normal QRS
Ischemia: non-specific ST changes
*Critical Care Note
Total Time (30-74mins, 75-104mins- exclusive of procedures): 36
comment:
The high probability of a clinically significant, sudden or life threatening deterioration of the c ardiovascular system(s) required my full and direct attention, intervention and personal management. The aggregate critical care time was 36 minutes.
This time is in addition to time spent performing reported procedures but includes the following:
[x] Data Review and interpretation
[x] Patient assessment and monitoring of vital signs
[x] Documentation
[x] Medication orders and management
ED Attending Note
-
Portions of this chart may have been created with voice recognition software.� Occasional wrong word or��sound alike� substitutions may have occurred due to the inherent limitations of voice recognition software.
Discharge Plan
Departure
Patient Disposition: Home (Routine Discharge)
Date of Disposition: 05/29/25
Time of Disposition: 08:52
Patient with high blood pressure during this ER visit?: Yes
Condition: Fair
Discharge Problem:
Non-ST elevation (NSTEMI) myocardial infarction, Chest pain
Prescriptions:
No Action
Opsumit 10 MG tablet
10 mg PO DAILY
venlafaxine [Effexor XR] 150 MG capsule,extended release 24hr
150 mg PO DAILY
atorvastatin 80 MG tablet
80 mg PO HS
metoprolol tartrate 25 MG tablet
25 mg PO BID
cetirizine 10 mg Tablet
10 mg PO DAILY
polyethylene glycol 3350 [Miralax] 17 gram Powder In Packet
17 g PO DAILYPRN PRN (Reason: Constipation)
hydroxychloroquine 200 mg Tablet
400 mg PO DAILY
dicyclomine 10 mg Capsule
10 mg PO QIDPRN PRN (Reason: abdominal pain)
levothyroxine 112 mcg Tablet
112 mcg PO DAILY AT 0700
leflunomide [Arava] 20 MG tablet
20 mg PO DAILY Qty: 0 0RF
paricalcitol 1 mcg Capsule
1 mcg PO MOWEFR
famotidine 40 mg Tablet
40 mg PO QPM
allopurinol 100 mg Tablet
50 mg PO DAILY
omeprazole 40 mg Capsule,Delayed Release(Dr/Ec)
40 mg PO DAILY
dapagliflozin propanediol [Farxiga] 10 mg Tablet
10 mg PO DAILY
isosorbide mononitrate 30 MG tablet extended release 24 hr
30 mg PO DAILY Qty: 0 0RF
amlodipine 5 mg tablet
5 mg PO HS Qty: 30 0RF
prednisone 20 mg Tablet
20 mg PO DAILY
hydrocortisone 10 mg Tablet
10 mg PO DAILY
Eliquis 5 mg Tablet
5 mg PO BID
clonazepam 1 mg tablet
1 mg PO HSPRN PRN (Reason: sleep)
furosemide [Lasix] 20 mg tablet
20 mg PO MOWEFR
ondansetron 4 mg tablet,disintegrating
4 mg PO Q8HPRN PRN (Reason: nausea and vomiting)
Referrals:
Shayna Nielsen MD [Family Provider, Family Practice]
Interventions
Interventions:
*Risk Screen - Suicide Last Done: 05/29/25 07:15
*General Assessment Last Done: 05/29/25 07:15
*Neglect/Abuse Screening Last Done: 05/29/25 07:15
*ED COVID-19 Vaccine History Last Done: 05/29/25 07:15
*ED Influenza Vaccine History Last Done: 05/29/25 07:15
ED- Cardiac Assessment Last Done: 05/29/25 08:05
Discharge Date and Time
Print Language: INDONESIAN
[2025-05-29] MEDS: NITROSTAT (SUBLINGUAL) 0.4 MG SL (08:16)
[2025-05-29] MEDS: LOW STRENGTH ASPIRIN 324 MG PO (08:16)
--- NOTE | 2025-05-29 08:19 | CON.CAR ---
Addendum entered and electronically signed by Henrietta Hope MD 05/29/25 10:52:
I saw and examined the patient.
The Field Marketer's note was reviewed and I agree with the note.
Comment: Patient examined by me. Regular rate and rhythm (known A-fib with AVJ ablation and pacing) 2/ visit systolic murmur. No significant edema. Lungs clear with decreased breath sounds
She presented with chest discomfort typical of her prior angina. Troponin is rising. EKG indeterminate given chronically paced rhythm.
Chest discomfort now from level 5 to level 1 after start of IV nitroglycerin. IV nitroglycerin, heparin, aspirin (last dose of Eliquis Monday). Vital signs stable. Her is at the bedside.
She has known history of coronary disease as outlined below, heart failure with preserved ejection fraction, hypertension, paroxysmal/persistent atrial fibrillation status post pacemaker and AVJ ablation given failure of antiarrhythmic drug therapy,
renal insufficiency (Dr. Ware) history of dialysis in the past in the setting of critical illness. History of May-Thurner syndrome status post vascular intervention prior. She also has pulmonary arterial hypertension and for many years has
remained stable on treatment. This has been who Group 1 related to connective tissue disease (scleroderma).
Impression:
Non-Q wave myocardial infarction
Known coronary artery disease
Pulmonary arterial hypertension on treatment (Opsumit)
Atrial fibrillation chronic anticoagulation
Pacemaker with AVJ ablation
Renal insufficiency (prior dialysis now resolved)
Dialysis graft with history of left upper extremity steal followed by vascular status post previous procedure
Hyperlipidemia
Hypertension
Plan at this time:
We discussed the risks and benefits of proceeding with cardiac catheterization given ongoing chest discomfort, known coronary disease and rising troponins. Discussed at great length.
I have discussed with interventional cardiology
Right and left heart catheterization should be performed.
She has been a right groin case in the past for cardiac catheterization last 2022. Anatomy reviewed. Given 'small vessels 'dialysis shunt.
Continue heparin/nitrates/aspirin. Renew oral anticoagulation when able given persistent A-fib.
Lipids pending. Continue lipid-lowering.
Continue stable volume status
Renal consult given complex history.
All testing reviewed.
Critical care time greater than 1 hour.
Original Note:
Consultation
Consultation Request
Date/Time Consultation Requested: 05/29/25
Date/Time Consultation Performed: 05/29/25
Requesting Provider: Dr. Liu
Performing Provider: Dr. Henrietta Hope
Reason for Consultation: Chest pain, elevated Troponin
Medical History
-
History of Present Illness:
Patient came to the ER today with chest pain and is being admitted with NSTEMI and cardiology has been consulted. Patient went to bed in her usual state of health last night and awoke to urinate around 0400 this morning and had chest pain when she
went back to bed. Pain is substernal and now radiating to her back. She came to the ER and initial Troponin 0.35. ECG is paced. No improvement with NTG SL x2. Pain now radiating to her back. Patient was hypotensive at last cardiology office visit
and Imdur ER was stopped. She saw neprhology the next week and was HTN. She then had a planned back injection last week, but it was cancelled and she was sent to the ER for HTN urgency. She has a h/o CAD and says that her current pain is identical
to pervious ND pain.
PMH:
CAD
s/p LAD PCI 2008
cath 2011 with patent LAD stent and mod small OM3 disease
PCI to proximal LAD and PTCA of the small first diagonal 07/05/19
HTN
Pulmonary hypertension
Chronic diastolic CHF
Paroxysmal atrial fibrillation
Chronic Eliquis anticoagulation
last dose 05/25/25
CKD
h/o DEANNA requiring HD felt to be secondary to contrast induced nephropathy
h/o May Thurner syndrome
s/p vascular repair surgery
h/o prior L iliac vein stent in setting of acute venous occlusion/DVT 01/2016
h/o vascular procedure for LUE steal syndrome
h/o RUE DVT, PICC line related
RA
Past Medical History
Past Medical History: Seizures (in HPI)
Past Surgical History: Cholecystectomy and Orthopedic
Social History
Tobacco: Non-Smoker
Alcohol: Occasional (less than once a month)
Drug: None
Personal:
Living: With Family
Employment: Retired ([employer] RN)
Family History
Family History: CAD, Cancer and Diabetes
Allergies / Home Medications
Allergy/AdvReac Type Severity Reaction Status Date / Time
adhesive tape Allergy Rash, Verified 05/29/25 07:17
itching
celecoxib Allergy Unknown Verified 05/29/25 07:17
codeine Allergy Nausea / Verified 05/29/25 07:17
Vomiting
Iodinated Contrast Media Allergy Hives; Verified 05/29/25 07:17
(Iodinated Contrast- Oral kidney
and IV Dye) damage
ketorolac tromethamine (From Allergy Nausea / Verified 05/29/25 07:17
Toradol) Vomiting
lisinopril Allergy cough Verified 05/29/25 07:17
meperidine HCl (From Demerol) Allergy Nausea / Verified 05/29/25 07:17
Vomiting
NSAIDS (Non-Steroidal Allergy kidney Verified 05/29/25 07:17
Anti-Inflamma (NSAIDS failure
(Non-Steroidal
Anti-Inflammatory Drug))
oxycodone HCl (From Percocet) Allergy Nausea / Verified 05/29/25 07:17
Vomiting
Penicillins Allergy Swelling/Pt Verified 05/29/25 07:17
tolerated
ceftriaxone
06/2023
admission
prochlorperazine edisylate Allergy chadwick's Verified 05/29/25 07:17
(From Compazine) jayden
prochlorperazine maleate Allergy chadwick's Verified 05/29/25 07:17
(From Compazine) palsey
Sulfa (Sulfonamide Allergy Swelling Verified 05/29/25 07:17
Antibiotics)
environmental Allergy itchy Uncoded 05/29/25 07:17
eyes,runny
nose
�Medication �Instructions �Recorded �Confirmed �Type
macitentan 10 mg tablet (Opsumit) 10 mg PO DAILY PULMONARY ARTERIAL 07/26/16 04/12/25 History
HYPERTENSION
venlafaxine 150 mg 150 mg PO DAILY Mental 09/18/17 04/12/25 History
capsule,extended release 24 hr Health/Anxiety
(Effexor XR)
atorvastatin 80 mg tablet 80 mg PO HS High Cholesterol 03/26/21 04/12/25 History
metoprolol tartrate 25 mg tablet 25 mg PO BID Blood Pressure 03/26/21 04/12/25 History
nitroglycerin 0.4 mg sublingual 0.4 mg sublingual [id number] PRN 03/26/21 04/12/25 History
tablet chest pain
aspirin 81 mg tablet,delayed 81 mg PO HS Blood Clot 03/01/23 04/12/25 History
release Prevention/Tx
apixaban 5 mg tablet (Eliquis) 5 mg PO BID Blood Clot 03/05/23 04/12/25 History
Held on 03/06/25. Prevention/Tx
Instructions: Resume on
03/08/25.
cetirizine 10 mg tablet 10 mg PO DAILY Allergies 05/23/23 04/12/25 History
dicyclomine 10 mg capsule 10 mg PO QID PRN abdominal pain 07/07/23 04/12/25 History
hydroxychloroquine 200 mg tablet 200 mg PO DAILY LUPUS 07/07/23 04/12/25 History
levothyroxine 112 mcg tablet 112 mcg PO DAILY AT 0700 Thyroid 07/07/23 04/12/25 History
polyethylene glycol 3350 17 gram 17 g PO DAILYPRN PRN Constipation 07/07/23 04/12/25 History
oral powder packet (Miralax)
leflunomide 20 mg tablet (Arava) 20 mg PO DAILY Autoimmune Disorder 07/11/23 04/12/25 Rx
#0 tabs
paricalcitol 1 mcg capsule 1 mcg PO MOWEFR HYPERPARATHYROIDISM 02/14/25 04/12/25 History
allopurinol 100 mg tablet 50 mg PO DAILY Gout 02/17/25 04/12/25 History
dapagliflozin propanediol 10 mg 10 mg PO DAILY CHF 02/17/25 04/12/25 History
tablet (Farxiga)
famotidine 40 mg tablet 40 mg PO QPM GERD 02/17/25 04/12/25 History
hydrocortisone 10 mg tablet 10 mg PO DAILY LUPUS/RA 02/17/25 04/12/25 History
Held on 03/06/25.
Instructions: Resume on
03/09/25.
mupirocin 2 % topical ointment 1 applic intranasal BID #1 tube 02/17/25 04/12/25 Rx
omeprazole 40 mg capsule,delayed 40 mg PO DAILY GERD 02/17/25 04/12/25 History
release
Saccharomyces boulardii 250 mg 250 mg PO DAILY #7 caps 03/06/25 04/12/25 Rx
capsule (Florastor)
acetaminophen 500 mg tablet 1,000 mg (2 x 500 mg) PO Q6H #60 03/06/25 04/12/25 Rx
(Tylenol Extra Strength) tabs
amlodipine 2.5 mg tablet (Norvasc) 2.5 mg PO HS HYPERTENSION #0 tabs 03/06/25 04/12/25 Rx
apixaban 2.5 mg tablet (Eliquis) 2.5 mg PO BID #3 tabs 03/06/25 04/12/25 Rx
clonazepam 1 mg tablet 1 mg PO HS PRN sleep #1 tab 03/06/25 04/12/25 Rx
docusate sodium 100 mg capsule 100 mg PO BID #30 caps 03/06/25 04/12/25 Rx
furosemide 20 mg tablet (Lasix) 20 mg PO MOWEFR #30 tabs 03/06/25 04/12/25 Rx
isosorbide mononitrate 30 mg 30 mg PO DAILY Heart 03/06/25 04/12/25 Rx
tablet,extended release 24 hr Disease/Condition #0 tabs
ondansetron 4 mg disintegrating 4 mg PO Q8H PRN nausea and 03/06/25 04/12/25 Rx
tablet vomiting #30 tabs
sennosides 8.6 mg tablet (Juliet-linda) 17.2 mg (2 x 8.6 mg) PO BID #30 03/06/25 04/12/25 Rx
tabs
prednisone 10 mg tablet See Rx Instructions .Route 04/12/25 Rx
.COMPLEX #30 tabs
amlodipine 5 mg tablet 5 mg PO HS #30 tabs 05/22/25 Rx
Review of Systems
-
History Source: Patient, Family and Coordinating Provider
All other systems: Negative unless noted
Physical Exam
Vital Signs
Temp Pulse Resp BP Pulse Ox
98.6 F 70 13 165/93 98
05/29/25 07:15 05/29/25 08:00 05/29/25 08:00 05/29/25 07:15 05/29/25 08:17
GEN: NAD. AAOx3
HEENT: EOMI, MMM
LUNGS: RA. CTA B/L, no wheeze
CV: V paced with underlying atrial flutter on tele. Reg, S1/S2, no murmur
ABD: ND
EXT: No edema B/L LE
NEURO: Gross non-focal
SKIN: No rash
Lab Results
05/29/25 07:23
05/29/25 07:23
Troponin I 0.350 ng/ml H* 05/29/25 07:23
Impression / Plan
-
PCP: Dr. Shayna Nielsen
Primary mds nurse: Dr. Henrietta Hope
Impression:
Admitted with chest pain and elevated Troponin 05/29/25
NSTEMI
CAD
s/p LAD PCI 2008
cath 2011 with patent LAD stent and mod small OM3 disease
PCI to proximal LAD and PTCA of the small first diagonal 07/05/19
HTN
Pulmonary hypertension
Chronic diastolic CHF
Paroxysmal atrial fibrillation
Chronic Eliquis anticoagulation
last dose 05/25/25
CKD
h/o DEANNA requiring HD felt to be secondary to contrast induced nephropathy
h/o May Thurner syndrome
s/p vascular repair surgery
h/o prior L iliac vein stent in setting of acute venous occlusion/DVT 01/2016
h/o vascular procedure for LUE steal syndrome
h/o RUE DVT, PICC line related
RA
Echo 12/20/24: EF 55-60%, no WMA, mild MR, no , trace TR with PAP 25-30 mmHg
Plan:
-Patient came to the ER today with chest pain and is being admitted with NSTEMI and cardiology has been consulted. Patient went to bed in her usual state of health last night and awoke to urinate around 0400 this morning and had chest pain when she
went back to bed. Pain is substernal and now radiating to her back. She came to the ER and initial Troponin 0.35. ECG is paced. No improvement with NTG SL x2. Pain now radiating to her back. Patient was hypotensive at last cardiology office visit
and Imdur ER was stopped. She saw neprhology the next week and was HTN. She then had a planned back injection last week, but it was cancelled and she was sent to the ER for HTN urgency. She has a h/o CAD and says that her current pain is identical
to pervious ND pain.
-ECG is V paced with underlying atrial flutter
-Initial Troponin 0.35 and ongoing chest pain that is identical to previous ND pain. Will manage as ACS/NSTEMI.
-Start Heparin gtt now
-Start Nitro gtt now, if there is a delay in IV access then start nitro-paste, preliminary orders entered by me, but nursing was able to secure a 2nd IV site quickly.
-Aspirin given in the ER
-Patient normally takes Eliquis for permanent Afib/flutter, but last dose was Monday because she was supposed to have a back injection today.
-Consult nephrology due to h/o DEANNA that required transient HD, order placed by me.
-Patient was hypotensive at last cardiology office visit and Imdur ER was stopped. She saw nephrology the next week and was HTN. She then had a planned back injection last week, but it was cancelled and she was sent to the ER for HTN urgency. BP
162/90 now and increasing Nitro gtt to manage chest pain
-Check CVE and cont atorvastatin 80 mg daily for now
-Ativan 1 mg PO x1 now to help with anxiety
Scores
AJ for NSTEMI
Age >/= 65: Yes
>/=3 CAD risk factors-HTN,High Chol,Fam hx CAD,DM,Smoker: Yes
Known CAD (stenosis >/=50%): Yes
ASA use in past 7 days: No
Severe angina (>/= 2 episodes in 24 hrs): Yes
EKG ST Changes >/= 0.5mm: No
Positive cardiac marker: Yes
Score: 5
Risk at 14 days-mortality, new/recurrent ND, severe ischemia: Intermediate Risk- 26% Risk at 14 days- all cause mortality, new or recurrent ND, or severe recurrent ischemia requiring urgent revascularization
[2025-05-29 09:18] LABS: APTT 21.4 Sec (23.4-35.0)
[2025-05-29] MEDS: ATIVAN 1 MG PO (09:25)
[2025-05-29] MEDS: HEPARIN 4000 UNITS IV (09:27)
[2025-05-29] MEDS: HEPARIN 25000 UNITS/250 ML IV (09:30)
[2025-05-29] MEDS: NITROGLYCERIN PREMIX 250 IV (09:36)
--- NOTE | 2025-05-29 09:51 | HPS.HSE ---
Family Physician
-
Family Physician: Shayna Nielsen
Chief Complaint
-
Chest pain
History of Present Illness
Patient is a 74-year-old female with past medical history of coronary disease status post LAD stenting, chronic diastolic congestive heart failure, paroxysmal atrial fibrillation with history of ablation, history of rheumatoid arthritis/lupus on
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
venous thrombosis from PICC placement, spinal degenerative joint disease, GERD, generalized anxiety disorder, hypothyroidism, pulmonary hypertension came to ER with new onset of sternal chest pain with radiating to both arms. Symptoms were sudden
onset not associated with nausea or diaphoresis. Patient was provided 2 doses of nitroglycerin without any improvement in symptoms. Cardiology was involved in care and patient is planned to taken to the left heart catheterization.
During my visit patient is comfortable and not voicing any ongoing chest pain after being given the meds. Not voicing any other complaints of ongoing shortness of breath/dizziness/headache/palpitation. No abdominal or complaints either.
Medical History
Past Medical History
Past Medical History: Reports None and Other
Additional Past Medical History:
history of coronary disease status post LAD stenting, chronic diastolic congestive heart failure, paroxysmal atrial fibrillation with history of ablation, history of rheumatoid arthritis/lupus on leflunomide, history of adrenal insufficiency on
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
degenerative joint disease, GERD, generalized anxiety disorder, hypothyroidism, pulmonary hypertension
Past Surgical History: Reports Other
Social History
Tobacco: Non-smoker
Alcohol: None
Personal:
Living: With Family
Family History
Family History: Not pertinent
Allergies / Home Medications
Allergies reflects when Allergies were last updated in [email or web address].
Home Medications with original date entered in [email or web address]
Allergy/Medication List:
Allergies
Allergy/AdvReac Type Severity Reaction Status Date / Time
adhesive tape Allergy Rash, Verified 05/29/25 07:17
itching
celecoxib Allergy Unknown Verified 05/29/25 07:17
codeine Allergy Nausea / Verified 05/29/25 07:17
Vomiting
Iodinated Contrast Media Allergy Hives; Verified 05/29/25 07:17
(Iodinated Contrast- Oral kidney
and IV Dye) damage
ketorolac tromethamine (From Allergy Nausea / Verified 05/29/25 07:17
Toradol) Vomiting
lisinopril Allergy cough Verified 05/29/25 07:17
meperidine HCl (From Demerol) Allergy Nausea / Verified 05/29/25 07:17
Vomiting
NSAIDS (Non-Steroidal Allergy kidney Verified 05/29/25 07:17
Anti-Inflamma (NSAIDS failure
(Non-Steroidal
Anti-Inflammatory Drug))
oxycodone HCl (From Percocet) Allergy Nausea / Verified 05/29/25 07:17
Vomiting
Penicillins Allergy Swelling/Pt Verified 05/29/25 07:17
tolerated
ceftriaxone
06/2023
admission
prochlorperazine edisylate Allergy chadwick's Verified 05/29/25 07:17
(From Compazine) palsey
prochlorperazine maleate Allergy chadwick's Verified 05/29/25 07:17
(From Compazine) palsey
Sulfa (Sulfonamide Allergy Swelling Verified 05/29/25 07:17
Antibiotics)
environmental Allergy itchy Uncoded 05/29/25 07:17
eyes,runny
nose
Home Medications
macitentan 10 mg tablet (Opsumit) 10 mg PO DAILY PULMONARY ARTERIAL HYPERTENSION 07/26/16
venlafaxine 150 mg capsule,extended release 24 hr (Effexor XR) 150 mg PO DAILY Mental Health/Anxiety 09/18/17
atorvastatin 80 mg tablet 80 mg PO HS High Cholesterol 03/26/21
metoprolol tartrate 25 mg tablet 25 mg PO BID Blood Pressure 03/26/21
cetirizine 10 mg tablet 10 mg PO DAILY Allergies 05/23/23
dicyclomine 10 mg capsule 10 mg PO QIDPRN PRN abdominal pain 07/07/23
hydroxychloroquine 200 mg tablet 400 mg PO DAILY LUPUS 07/07/23
levothyroxine 112 mcg tablet 112 mcg PO DAILY AT 0700 Thyroid 07/07/23
polyethylene glycol 3350 17 gram oral powder packet (Miralax) 17 g PO DAILYPRN PRN Constipation 07/07/23
leflunomide 20 mg tablet (Arava) 20 mg PO DAILY Autoimmune Disorder #0 tabs 07/11/23
paricalcitol 1 mcg capsule 1 mcg PO MOWEFR HYPERPARATHYROIDISM 02/14/25
allopurinol 100 mg tablet 50 mg PO DAILY Gout 02/17/25
dapagliflozin propanediol 10 mg tablet (Farxiga) 10 mg PO DAILY Diabetes 02/17/25
famotidine 40 mg tablet 40 mg PO QPM GERD 02/17/25
omeprazole 40 mg capsule,delayed release 40 mg PO DAILY GERD 02/17/25
isosorbide mononitrate 30 mg tablet,extended release 24 hr 30 mg PO DAILY Heart Disease/Condition #0 tabs 03/06/25
amlodipine 5 mg tablet 5 mg PO HS #30 tabs 05/22/25
apixaban 5 mg tablet (Eliquis) 5 mg PO BID Blood Clot Prevention/Tx 05/29/25
clonazepam 1 mg tablet 1 mg PO HSPRN PRN sleep 05/29/25
furosemide 20 mg tablet (Lasix) 20 mg PO MOWEFR Fluid Retention/Swelling 05/29/25
hydrocortisone 10 mg tablet 10 mg PO DAILY 05/29/25
ondansetron 4 mg disintegrating tablet 4 mg PO Q8HPRN PRN nausea and vomiting 05/29/25
prednisone 20 mg tablet 20 mg PO DAILY 05/29/25
Review of Systems
-
A 12 point ROS was completed and negative except as noted: Yes
Physical Exam
Vital Signs
Vital Signs
Temp Pulse Resp BP Pulse Ox
98.6 F 71 23 162/90 100
05/29/25 07:15 05/29/25 09:45 05/29/25 09:45 05/29/25 09:45 05/29/25 09:30
Physical Exam
General: Well Developed, Well Nourished and No Apparent Distress
HEENT: NormoCephalic, Moist mucous membranes and Atraumatic
Respiratory: Clear
Cardiac: S1/S2 and Regular Rhythm; No Murmur or Rub
GI: Soft, Non Tender, Non Distended and Normal Bowel Sounds; No Organomegaly
Musculoskeletal: No Clubbing, No Cyanosis and No Edema
Skin: No Rash
Neuro: Nonfocal/grossly intact
Laboratory Results
-
05/29/25 07:23
05/29/25 07:23
Laboratory Results
APTT Cancelled 05/29/25 08:44
Total Bilirubin 0.4 mg/dl (0.2-1.3) 05/29/25 07:23
AST 21 U/L (14-36) 05/29/25 07:23
ALT 31 U/L (0-35) 05/29/25 07:23
Alkaline Phosphatase 50 U/L (38-126) 05/29/25 07:23
Troponin I Cancelled 05/29/25 09:21
Lipase 391 U/L (23-300) H 05/29/25 07:23
Impression/Plan
-
1. Chest pain
Troponin elevation
history of coronary disease status post LAD stenting
- Patient presented with acute onset of sternal chest pain with rating to arm. No associated nausea/diaphoresis.
- EKG showing atrial flutter with paced rhythm.
- Troponin of 0.35 > 1.4
- Cardiology evaluated and patient going to left heart catheterization today
- Patient got aspirin 325 mg in the ER. On heparin drip and nitro drip
2. Chronic diastolic congestive heart failure
- lasix to be held, will be resumed based on post heart catheterization
-No signs of volume overload/heart failure exacerbation
3. Paroxysmal atrial fibrillation with history of ablation
- EKG showing atrial flutter with paced rhythm
- Resume back metoprolol from tonight with holding parameter
- Eliquis on hold as patient has been switched to heparin drip
4. CKD stage IIIb
History of DEANNA requiring dialysis in the
-Patient has been diagnosed for lupus and may have played role in CKD
-Creatinine 1.7 in the ER which is better than 2 in the past
-Monitor renal function post heart catheterization, patient at risk of ROLANDO
-Avoid nephrotoxic medication
5. SLE
Rheumatoid arthritis
- Continue on home dose of leflunomide/Plaquenil
6. Ivan's disease
- Patient usually takes hydrocortisone 10 mg daily, managed by endocrinology
- As patient having lower lumbar spinal issue pending FABIÁN currently getting prednisone 20 mg daily
- Patient developed hypotension will require stress dose of steroids
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
history of right upper extremity deep venous thrombosis from PICC placement
spinal degenerative joint disease
GERD
generalized anxiety disorder
hypothyroidism
pulmonary hypertension - on opsumit
Heparin drip
Full code
Total time spent : 83 mins
I personally saw and examined the patient.
I have reviewed all diagnostic interpretations and treatment plans as written.
Time includes patient management by me, time spent at the patients bedside, time to review lab and imaging results, discussing patient care, documentation in the medical record, and time spent with the family or caregiver and discussing care plan
with RN/Consultants.
[2025-05-29 10:37] LABS: Troponin I 1.400 ng/ml
--- NOTE | 2025-05-29 10:51 | W.PN.UPDATE ---
Update Note
Progress Note Update
Back in to check on patient, additional family now present. Chest pain improved from a 5 to a 1 with NTG gtt running at 25 mcg. Heparin gtt running. Updated patient and family again with Troponin trending up to 1.4. Plan remains for optical laboratory technician today.
We reviewed with risks vs benefits with again now that more family is present. We talked about her being unable to an epidural injection while on Plavix and she is disappointed. 31 min critical care time in face to face and on-face to face regarding
NSTEMI and chest pain management.
--- NOTE | 2025-05-29 12:11 | ITS.CL.CATH ---
Brake Lining Maker - Catheterization
Cardiac Catheterization
Procedure Report:
LEFT AND RIGHT HEART CATHETERIZATION
Date of Procedure: May 29, 2025
Referring: Henrietta Hope MD
PROCEDURES:
1. Left heart catheterization, coronary angiogram.
2. Moderate sedation.
3. Right heart catheterization
4. Functional physiologic testing with iFR of mid LAD.
5. Functional physiologic testing with iFR of OM3.
INDICATION: High Risk NSTEMI with ongoing CP and pulm HTN
ACCESS: Right radial artery, 6Fr. sheath, under US guidance.
Right common femoral vein, 6Fr. sheath, under Us guidance using micropuncture sheath.
HEMODYNAMICS : (mmHg)
RA (m) : 5
RV (s/d,m) : 26/3, 6
PA (s/d, m) : 25/19, 17
PCWP (m) : 10
PA saturation: 64.5% on room air
AO saturation: 94.7% on room air
RA saturation: 63.3% on room air
Cardiac Output : 3.9 L/min
Cardiac Index : 2.0 L/min/m-2
Systemic vascular resistance: 1969 dsc^(-5)
Pulmonary vascular resistance: 1.78 frank unit
AO (s/d) : 146/79
LVEDP : 10
No significant gradient across the aortic valve to suggest aortic stenosis.
CORONARY FINDINGS
Dominance: Left
Left Main Trunk (LMT): Large caliber vessel that gives rise to the LAD and LCx branches and is free of angiographic disease.
Left Anterior Descending Artery (LAD): Large caliber vessel that gives off 2 major diagonal branches as it courses along the anterior inter-ventricular groove before wrapping around the cardiac apex. Mid LAD has 50% calcified stenosis between two
prior stents which are patent. iFR negative at 0.94. D1 and D2 are small caliber vessels with 50% ostial stenosis. AJ 3 flow into all distal vessels.
Left Circumflex Artery (LCx): Large caliber vessel that gives off 3 major obtuse marginal (OM) branches as it courses along the atrio-ventricular (AV) groove. OM1 is small caliber vessel with 60% ostial and proximal stenosis, not a PCI target. OM3
has stable 60-70% OM3 stenosis, iFR negative at 0.95. AJ 3 flow into all distal vessels.
Right Coronary Artery (RCA): Small caliber non-dominant vessel that gives rise to the posterior descending artery (RPDA) and postero-lateral ventricular (RPLV) branches distally. There is minimal luminal irregularities.
HEMODYNAMIC ASSESSMENT OF THE OM 3 AND MID LAD WITH A VOLCANO OMNI WIRE: The origin of the left coronary artery was cannulated with a 6 Fr EBU 3.5 guide catheter. Intravenous heparin was administered and the ACT was followed during the procedure.
Two hundred micrograms of intracoronary nitroglycerin was given through the guide catheter. A Jerome Omni wire was advanced to the guide catheter tip and normalized just outside the guide catheter. The Omni wire was then carefully manipulated
across the stenosis in the OM3 with the iFR above the ischemic threshold measuring 0.95. The Omni wire was then pulled back to the guide catheter where the Pd/Pa measured 1.0 confirming no baseline drift in pressure readings. Decision was then
made to proceed with IFR of the mid LAD. We normalized just outside of the guide catheter and the Omni wire was then carefully manipulated across the stenosis in the mid LAD with iFR above the ischemic threshold measuring 0.94. The Omni wire was
then pulled back to the guide catheter where the Pd/Pa measured 1.0 confirming no baseline drift in pressure readings.
SEDATION: 47 minutes of procedural sedation was utilized. IV Midazolam and IV Fentanyl were administered. An independent medical secretary receptionist was present to assist with and help manage the patient's level of consciousness and physiologic status.
RADIATION SUMMARY: Fluoro Time (min): 7.0, Dose (mGy): 187.41, DAP (Gy.cm2) : 14
Closure Device: There were no immediate intra-procedural complications. The sheath was pulled in the molder labels and a vascular-band applied to the right wrist for radial artery hemostasis using the patent hemostasis technique.
CONCLUSIONS
1. No obstructive CAD.
2. AJ 3 flow into all distal vessels.
3. iFR negative 50% mid LAD stenosis, iFR 0.94
4. iFR negative 60-70% OM3 stenosis, iFR 0.95.
5. Near normal right and left sided filling pressures and borderline low CO in setting of elevated SVR.
RECOMMENDATIONS
1. Wean radial band per protocol. Monitor right hand perfusion and for bleeding from the radial site following removal of the vascular-band following trans-radial access.
2. Continue aggressive medical therapy and risk factor modification for secondary CAD prevention.
3. Hydrate with normal saline to mitigate the risk of contrast-induced acute kidney injury.
4. Follow-up with Dr. Henrietta Hope.
Copy to: Henrietta Hope
Mary Gómez MD, FAC, [facility]
--- NOTE | 2025-05-29 14:34 | CM ---
Reviewed chart. Met with and Mrs. Pappas to review discharge plans. She states prior to admission she resides with her spouse in a one story home with a loft. She states she has one step to enter the home. She states prior to admission she
was ambulating with a walker. She states she has a prescription plan and uses [facility]. Medical work-up in progress. The discharge plan is to return home with her spouse when medically stable.
--- NOTE | 2025-05-29 15:50 | PTCARENOTE ---
Pt received post procedure at 1340. Right radial band site WNL. Pt c/o of 1 chest discomfort. Nitro infusing at 40mcg on arrival. Vpaced on the monitor. Room air sat 97%.
[2025-05-29] MEDS: TYLENOL 650 MG PO ×2 (16:44→22:18)
[2025-05-29 17:06] LABS: Troponin I 2.560 ng/ml
[2025-05-29] MEDS: PEPCID 20 MG PO (17:09)
[2025-05-29] MEDS: NORVASC 5 MG PO (17:09)
[2025-05-29] MEDS: IMDUR (EXTENDED RELEASE) 60 MG PO (17:11)
--- NOTE | 2025-05-29 17:13 | W.PN.UPDATE ---
Update Note
Progress Note Update
Updated patient and family in the room. We reviewed the results of cardiac catheterization. We reviewed HTN emergency. We reviewed transitioning from nitro gtt to Imdur ER plus the addition of amlodipine. Patient previously tolerated amlodipine
2.5 mg without difficulty. Plan is for ongoing admission overnight with medication titration and likely discharge to home tomorrow.
[2025-05-29] MEDS: LOPRESSOR 25 MG PO (19:55)
--- NOTE | 2025-05-29 21:20 | PTCARENOTE ---
Assumed care of patient at change of shift. Tele remains Vpaced, HR in the 70's. Pt denies any chest discomfort or SOB at this time. Has an occasional RADIO DESPATCHER cough, lungs clear throughout. Right radial and right groin dressing C/D/I w/ palpable pulses.
Right radial slightly ecchymotic. Educated patient about activity restrictions. Patient c/o chronic back and right hip discomfort. Patient reports she had relief post Tylenol administration by the day shift RN. Pt requires standby assist and uses RW
when ambulating in room. Call chadwick in reach.
[2025-05-29] MEDS: LIPITOR 80 MG PO (22:12)
[2025-05-29] MEDS: KLONOPIN 1 MG PO (22:12)
[2025-05-30 00:38] LABS: Troponin I 2.240 ng/ml
[2025-05-30 03:35] VITALS: BP 174/95
[2025-05-30 03:53] VITALS: BMI 27.8
[2025-05-30] MEDS: TYLENOL 650 MG PO ×2 (03:54→08:37)
[2025-05-30 04:32] LABS: Hematocrit 33.2 % (37.0-47.0); Hemoglobin 10.4 g/dL (12.0-16.0); Mean Corp Hgb Conc. 31.3 g/dL (33.0-37.0); Mean Corpuscular Volume 95.7 fL (81.0-99.0); Platelet Count 154 10^3/uL (130-400); Red Cell Dist. Width 14.8 % (11.5-14.5)
[2025-05-30 04:46] VITALS: BP 175/85
[2025-05-30] MEDS: NORVASC 2.5 MG PO ×2 (04:58→08:33)
[2025-05-30] MEDS: SYNTHROID 112 MCG PO (04:58)
[2025-05-30 04:59] LABS: Blood Urea Nitrogen 34 mg/dl (7-17); Calcium 8.7 mg/dl (8.4-10.2); Carbon Dioxide 21 mmol/L (22-30); Chloride 111 mmol/L (98-107); Estimated Creatinine Clearance 26 ml/min; Glucose 73 mg/dl (70-99); HDL Cholesterol 58 mg/dl; LDL Cholesterol, Calculated 29 mg/dl; Potassium 3.8 mmol/L (3.5-5.1); Sodium 136 mmol/L (135-145); Very Low Density Lipoprotein 21 mg/dl (0-30); eGFR 27.20
--- NOTE | 2025-05-30 06:02 | PTCARENOTE ---
BP 170/80's. Sean EL aware. Instructed RN to give 0800 dose of Amlodipine 2.5mg now. Medication administered at 04:58
[2025-05-30 07:13] VITALS: BP 143/90
[2025-05-30] MEDS: DELTASONE 20 MG PO (07:37)
[2025-05-30] MEDS: EFFEXOR XR 150 MG PO (07:37)
[2025-05-30] MEDS: ZYLOPRIM 50 MG PO (07:37)
[2025-05-30] MEDS: LOPRESSOR 25 MG PO (07:43)
[2025-05-30] MEDS: IMDUR (EXTENDED RELEASE) 60 MG PO (07:43)
[2025-05-30] MEDS: PROTONIX 40 MG PO (07:43)
[2025-05-30] MEDS: PLAQUENIL 400 MG PO (07:43)
[2025-05-30] MEDS: ZEMPLAR 1 MCG PO (07:47)
--- NOTE | 2025-05-30 08:39 | W.PN.CARDCBS ---
Addendum entered and electronically signed by Henrietta Hope MD 05/30/25 12:37:
I did also reach out to the patient's son Terry who is an fisherman helper in [place]. I did update him on testing and admission and he thanked us for our help.
Addendum entered and electronically signed by Henrietta Hope MD 05/30/25 10:19:
I saw and examined the patient.
The Certified Hyperbaric Technician's note was reviewed and I agree with the note.
Comment: General: Well developed, well nourished in NAD.
Neck: Supple, no JVD, HJR, carotids +2 B/L, no bruits bilaterally.
Heart: Non displaced PMI, RRR, 2/6 basal systolic murmurs,
Lungs: Clear to auscultation bilaterally,
Extremities: No clubbing, cyanosis or edema bilaterally.
Neuro: Grossly nonfocal, awake, alert and oriented x3.
She was admitted with chest pain and troponins peaked at 2.56. Cardiac catheterization noted without obstructive coronary disease. Troponin elevation may be in part related to hypertension, cannot rule out vasospastic angina or other etiologies.
Her symptoms have resolved thankfully today. Blood pressure remains elevated medicines are being altered. Right heart catheterization with normal pressures on treatment for pulmonary arterial hypertension and stable/normal volume status.
Echocardiogram without significant abnormalities. Otherwise labs are also stable.
Plan at this time:
Resume Eliquis for persistent atrial fibrillation previously paroxysmal
Okay to discontinue aspirin.
Blood pressure treatment with increased dose Imdur and increase dose of amlodipine along with prior medications. Goal blood pressure less than 135/85 and we will follow closely in the office.
She has known renal insufficiency which is stable postcontrast. We will recheck a chemistry within 1 week.
She will increase activity as tolerates.
Continue rheumatologic treatment.
Device check stable without abnormality.
We will make sure she has follow-up in the office but she is stable for discharge once her blood pressure has stabilized.
Original Note:
Today's Communication / Plan
-
Uptitrate amlodipine for hypertension
Resume Eliquis
Discharge later today if blood pressure improved
Follow-up arranged in cardiology office 06/16/2025
Impression / Plan
-
PCP: Dr. Shayna Nielsen
Primary steam table worker: Dr. Henrietta Hope
Impression:
Admitted with chest pain and elevated Troponin 05/29/25
NSTEMI
CAD
s/p LAD PCI 2008
cath 2011 with patent LAD stent and mod small OM3 disease
PCI to proximal LAD and PTCA of the small first diagonal 07/05/19
HTN
Pulmonary hypertension
Chronic diastolic CHF
Paroxysmal atrial fibrillation
Pacemaker with AVJ ablation
Chronic Eliquis anticoagulation
last dose 05/25/25
CKD
h/o DEANNA requiring HD felt to be secondary to contrast induced nephropathy
h/o May Thurner syndrome
s/p vascular repair surgery
h/o prior L iliac vein stent in setting of acute venous occlusion/DVT 01/2016
h/o vascular procedure for LUE steal syndrome
h/o RUE DVT, PICC line related
RA
Echo 12/20/24: EF 55-60%, no WMA, mild MR, no , trace TR with PAP 25-30 mmHg
Right/left heart cath 05/02/2025: Mid LAD 50% between 2 prior stents which are patent distally. IFR negative at 0.94. D1 82 small caliber vessels with 50% ostial stenosis. Left circumflex OM1 small caliber vessel with 60% ostial proximal stenosis,
not PCI target, OM 3 stable 60 to 70% OM 3 stenosis, IFR negative at 0.95. RCA waiting for his minimal luminal irregularities. This
RA 5, PA , PCWP 10, cardiac output 3.9, cardiac index 2.0
Plan:
-Patient came to the ER 05/29/25 with chest pain and admitted with NSTEMI with symptoms identical to prior AK pain. Initial Troponin 0.35-peak at 2.5 and downtrending 2.2.
-Right/left heart cath 05/29/2025: No obstructive CAD, near normal right and left sided filling pressure
-Antianginals uptitrated, transition from nitro drip to isosorbide and amlodipine added.
-Still hypertensive this morning and overnight. Increase amlodipine to 5 mg daily�I ordered
-Patient normally takes Eliquis for permanent Afib/flutter. Had been off for 4 days prior to admission as she was supposed to have a back injection 05/29/2025. Will resume Eliquis at this time�I ordered.
-History of chronic kidney disease with DEANNA that required transient HD due to contrast-induced nephropathy. Creatinine 1.7/stable on admission 05/02/2025, 1.9 today post cath
Repeat-BMP 1 week post discharge
-Follow-up in office 06/16/2025, 3:20 pm arranged
-LDL 29 at goal 05/30/25, cont atorvastatin 80 mg daily
- Telemetry personally reviewed: V-paced 70s
Progress Note - Pillow Agent
Subjective
Date of Service: May 30, 2025
-no recurrent CP since cath
Objective
Labs:
05/30/25 04:06
05/30/25 04:06
Labs
Hgb 10.4 g/dL (12.0-16.0) L 05/30/25 04:06
Hct 33.2 % (37.0-47.0) L 05/30/25 04:06
Plt Count 154 10^3/uL (130-400) 05/30/25 04:06
APTT Cancelled 05/29/25 15:30
Sodium 136 mmol/L (135-145) 05/30/25 04:06
Potassium 3.8 mmol/L (3.5-5.1) 05/30/25 04:06
BUN 34 mg/dl (7-17) H 05/30/25 04:06
Creatinine 1.9 mg/dL (0.6-1.0) H 05/30/25 04:06
Glucose 73 mg/dl (70-99) 05/30/25 04:06
Troponins
05/29/25 05/29/25 05/29/25
07:23 09:21 09:56
Troponin I 0.350 H* Cancelled 1.400 H* D
05/29/25 05/29/25
16:25 23:46
Troponin I 2.560 H* D 2.240 H*
Vital Signs and I&O:
Vital Signs
Temp Pulse Resp BP Pulse Ox
98.0 F 70 18 175/85 99
05/30/25 07:15 05/30/25 04:46 05/30/25 07:15 05/30/25 04:58 05/30/25 07:15
Vital Signs
Temp Pulse Resp BP Pulse Ox
98.0 F 70 18 175/85 99
05/30/25 07:15 05/30/25 04:46 05/30/25 07:15 05/30/25 04:58 05/30/25 07:15
Intake & Output
05/28/25 05/29/25 05/30/25 05/31/25
06:59 06:59 06:59 06:59
Intake Total 480 / 480
Balance 480 / 480
Physical Exam
Physical Exam
GEN: No distress, awake, Ox3
HEENT: supple, anicteric, mmm
LUNGS: CTA, no wheezes/rales
CV: Reg, S1/S2, no murmur
ABD: soft, BS+, NT/ND
EXT: No edema
NEURO: Gross non-focal
SKIN: No rash
--- NOTE | 2025-05-30 09:41 | CM ---
Reviewed chart, Met with Mrs. Pappas to review discharge plans. She states she is feeling better and maybe able to go home soon. Prior to admission she resides with her spouse in a one story home with a loft. She resides in a [place] community.
She has one step to enter the home.
Prior to admission she was ambulating with a walker. She has a prescription plan and uses [facility]. Medical work-up in progress. The discharge plan is to return home with her spouse when medically stable.
[2025-05-30] MEDS: ELIQUIS 5 MG PO (09:58)
[2025-05-30 11:38] VITALS: BP 145/86
[2025-05-30 13:07] VITALS: BP 136/65
--- NOTE | 2025-05-30 13:45 | W.DCSUMMARY ---
Discharge Summary
Discharge Data
Date of Admission: 05/29/25
Date of Discharge: 05/30/25
-
Pending Results: No
Hospital Course
Discharging Physician : Dr Frantz Luna
Disposition : To home
Primary care physician : Dr Shayna Nielsen
Principal Discharge diagnosis :
Chest pain
Troponin elevation
Uncontrolled essential hypertension
Chronic Discharge diagnosis :
Chronic diastolic congestive heart failure
History of coronary disease post left anterior descending stenting
Paroxysmal atrial fibrillation with history of ablation
Chronic disease stage IIIb
History of acute renal failure requiring dialysis
Systemic lupus erythematosus
Primary arthritis
Converse's disease
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
History of right upper extremity deep venous thrombosis from PICC line
Spinal degenerative joint disease
Gastroesophageal reflux disease
Generalized anxiety disorder
Hypothyroidism
Pulmonary hypertension
Physical examination:
HEENT: moist mucus membrane
Chest: Clear to auscultation
Heart: N s1/s2, RRR, no murmur
Abd: N BS, soft, nontender, nondistended, no organomegaly
Neuro: No motor or sensory deficits
Ext: No cyanosis, Clubbing, edema
Hospital Course :
Patient is a 74-year-old female with above-mentioned past medical history came with new onset of sternal chest pain with bilateral arm radiation which woke patient up from the sleep. Patient did not have any significant associated diaphoresis
nausea shortness of breath. In ER patient was evaluated by cardiology and with patient known history of coronary artery disease there was concern of possible new MD. Patient had minimal troponin elevation. Patient was started on nitro and heparin
drip. Patient was taken to heart catheterization later in the day and did not have any obstructive coronary disease. Patient was monitored overnight post heart catheterization and did not have any further episodes of chest pain. Patient home
medication was adjusted for for better blood pressure control and anginal symptom control. Patient was discharged to home at this point with plan for follow-up in cardiology office .
Important imaging findings :
None
Procedure findings :
C 05/29
1. No obstructive CAD.
2. AJ 3 flow into all distal vessels.
3. iFR negative 50% mid LAD stenosis, iFR 0.94
4. iFR negative 60-70% OM3 stenosis, iFR 0.95.
5. Near normal right and left sided filling pressures and borderline low CO in setting of elevated SVR.
Discharge Plan
-
Patient Disposition: Home (Routine Discharge)
Discharge Diagnosis/Procedures: Chest pain/angina, Elevated troponin
Condition: Fair
Diet: Low Cholesterol and 2 Gram Sodium
Activity: As tolerated
Driving Restrictions: No driving for 24 hours
Bathing Restrictions: None
Blood Work: repeat BMP 1 week after discharge- lab slip provided
Activity Restrictions/Additional Instructions:
Call Dr Hope's office on Monday if blood pressure consistently running >135-140/85-90.
Stand Alone Forms: DC Instructions- Cath/EP Lab
Referrals:
Shayna Nielsen MD [Family Provider, Family Practice] - in one week
Rose Faustin PA-C [Specified Professional Personl, Cardiology] - 06/16/25 3:20 pm
Referral Note: You have a follow-up appointment with Dr. Hope's physician special event assistant Rose at the [place] office. Please call with questions.
Prescriptions:
New
isosorbide mononitrate 60 mg Tablet Extended Release 24 Hr
60 mg PO DAILY Qty: 30 1RF
Continued
Opsumit 10 MG tablet
10 mg PO DAILY
venlafaxine [Effexor XR] 150 MG capsule,extended release 24hr
150 mg PO DAILY
atorvastatin 80 MG tablet
80 mg PO HS
metoprolol tartrate 25 MG tablet
25 mg PO BID
cetirizine 10 mg Tablet
10 mg PO DAILY
polyethylene glycol 3350 [Miralax] 17 gram Powder In Packet
17 g PO DAILYPRN PRN (Reason: Constipation)
hydroxychloroquine 200 mg Tablet
400 mg PO DAILY
dicyclomine 10 mg Capsule
10 mg PO QIDPRN PRN (Reason: abdominal pain)
levothyroxine 112 mcg Tablet
112 mcg PO DAILY AT 0700
leflunomide [Arava] 20 MG tablet
20 mg PO DAILY Qty: 0 0RF
paricalcitol 1 mcg Capsule
1 mcg PO MOWEFR
famotidine 40 mg Tablet
40 mg PO QPM
allopurinol 100 mg Tablet
50 mg PO DAILY
omeprazole 40 mg Capsule,Delayed Release(Dr/Ec)
40 mg PO DAILY
dapagliflozin propanediol [Farxiga] 10 mg Tablet
10 mg PO DAILY
amlodipine 5 mg tablet
5 mg PO HS Qty: 30 0RF
prednisone 20 mg Tablet
20 mg PO DAILY
Eliquis 5 mg Tablet
5 mg PO BID
clonazepam 1 mg tablet
1 mg PO HSPRN PRN (Reason: sleep)
furosemide [Lasix] 20 mg tablet
20 mg PO MOWEFR
ondansetron 4 mg tablet,disintegrating
4 mg PO Q8HPRN PRN (Reason: nausea and vomiting)
Held
hydrocortisone 10 mg Tablet
10 mg PO DAILY
Hold Instructions: Resume on 06/02/25. Hold while taking prednisone 20mg/d
Discontinued
isosorbide mononitrate 30 MG tablet extended release 24 hr
30 mg PO DAILY Qty: 0 0RF
Discharge Orders:
Discharge Patient (As Directed); Ordered 05/30/25
Ordered By: Frantz Luna
Care Plan Goals
Care Plan Goals:
Problem: Readiness for enhanced knowledge related to diagnosis and treatment plan
Goal: Understand your diagnosis and treatment plan needs, including medications if applicable.
Instructions: Know your diagnosis, underlying causes and treatment plan options, including medications if applicable. Consult with your health care team to learn about your diagnosis and treatment plan, including medications if applicable.
Discharge Date and Time
Print Language: IRANIAN
--- NOTE | 2025-05-30 13:50 | PTCARENOTE ---
Pt received this am with no c/o of any chest pain or sob. Right rad and groin sites WNL. Dressings dry and intact. OOB ad matthew. V paced on the monitor. Monitoring blood pressure before discharge. Pt discharged to home at 1350 with her .
Discharge instructions given and reviewed with good understanding and all questions answered.
== END 2025-05-30 14:00 | disposition home or self-care (01) | DRG 287 ==
LOC: IVU 09:58
PROVIDERS: Internal Medicine Interventional Cardiology; Nurse Practitioner Adult Health; ADMITTING PHYSICIAN Hospitalist; CONSULT PHYSICIAN Internal Medicine Cardiovascular Disease; EMERGENCY PHYSICIAN Student in an Organized Health Care Education/Training Program; FAMILY PHYSICIAN Family Medicine
PROC: 4A033BC Measurement of Arterial Pressure, Coronary, Percutaneous Approach (ICD-10-PCS; 2025-05-29)
PROC: 4A023N8 Measurement of Cardiac Sampling and Pressure, Bilateral, Percutaneous Approach (ICD-10-PCS; 2025-05-29)
PROC: B2111ZZ Fluoroscopy of Multiple Coronary Arteries using Low Osmolar Contrast (ICD-10-PCS; 2025-05-29)
DX: I25.119 Atherosclerotic heart disease of native coronary artery with unspecified angina pectoris (principal); I48.21 Permanent atrial fibrillation; I50.32 Chronic diastolic (congestive) heart failure; E27.1 Primary adrenocortical insufficiency; I13.0 Hypertensive heart and chronic kidney disease with heart failure and stage 1 through stage 4 chronic kidney disease, or unspecified chronic kidney disease; I48.92 Unspecified atrial flutter; I16.0 Hypertensive urgency; E03.9 Hypothyroidism, unspecified; I27.21 Secondary pulmonary arterial hypertension; M06.9 Rheumatoid arthritis, unspecified; M34.9 Systemic sclerosis, unspecified; M81.0 Age-related osteoporosis without current pathological fracture; M32.9 Systemic lupus erythematosus, unspecified; K21.9 Gastro-esophageal reflux disease without esophagitis; R79.89 Other specified abnormal findings of blood chemistry; M19.90 Unspecified osteoarthritis, unspecified site; N18.32 Chronic kidney disease, stage 3b; F41.1 Generalized anxiety disorder; E78.00 Pure hypercholesterolemia, unspecified; Z79.01 Long term (current) use of anticoagulants; Z90.49 Acquired absence of other specified parts of digestive tract; Z79.890 Hormone replacement therapy; Z79.84 Long term (current) use of oral hypoglycemic drugs; Z79.899 Other long term (current) drug therapy; Z95.0 Presence of cardiac pacemaker; Z95.5 Presence of coronary angioplasty implant and graft; Z86.718 Personal history of other venous thrombosis and embolism; Z82.49 Family history of ischemic heart disease and other diseases of the circulatory system; Z83.3 Family history of diabetes mellitus; Z80.8 Family history of malignant neoplasm of other organs or systems; Z88.6 Allergy status to analgesic agent; Z91.041 Radiographic dye allergy status; Z88.5 Allergy status to narcotic agent; Z88.0 Allergy status to penicillin; Z88.2 Allergy status to sulfonamides; Z88.8 Allergy status to other drugs, medicaments and biological substances; Z91.048 Other nonmedicinal substance allergy status
CPT/HCPCS: 71046; 80048; 80053; 80061; 83690; 84484; 85025; 85027; 85347; 85730; 93005; 93306; 93460; 93799; 96374; 96375; 99152; 99153; 99291; Q9967

== ENCOUNTER → 2025-06-09 09:01 | Outpatient (REF) | payer MEDICARE, BC, SELFPAY ==
[2025-06-09 11:13] LABS: Blood Urea Nitrogen 30 mg/dl (7-17); Calcium 9.5 mg/dl (8.4-10.2); Carbon Dioxide 23 mmol/L (22-30); Chloride 110 mmol/L (98-107); Glucose 68 mg/dl (70-99); Potassium 4.2 mmol/L (3.5-5.1); Sodium 137 mmol/L (135-145); eGFR 31.08
== END ==
LOC: REG 09:01
PROVIDERS: ATTENDING PHYSICIAN Internal Medicine Cardiovascular Disease; FAMILY PHYSICIAN Family Medicine
DX: N18.31 Chronic kidney disease, stage 3a (principal)
CPT/HCPCS: 36415; 80048